=== PATIENT | female | born 1970 | race Caucasian/White ===

== ENCOUNTER 2018-03-30 16:15 | Inpatient (IN) | payer BC, OTHER ==
[~2018-03-30] VITALS: Ht 157.5 cm; Wt 58.1 kg
--- NOTE | ~2018-03-30 | HC ---
[facility] [place] [address] CONSULTATION Name: EILEEN GRAVES Room #: 361-P [facility] IN ..#: [id number] Admission: 03/30/18 Attend Phys: Justin Stanton MD Discharge: Date of : 70 Report #: [id number] THIS REPORT FOR: //name// CC: Aaron Stanton DATE OF SERVICE: 04/01/2018 REASON FOR CONSULTATION: Left-sided facial swelling. HISTORY OF PRESENT ILLNESS: The patient is a 47-year-old female, who has been admitted with facial cellulitis and severe thrombocytopenia. I have been asked to evaluate her left-sided facial cellulitis. She has had a CT scan, which demonstrates facial swelling, but no underlying significant sinus disease or dental disease. She is currently having withdrawal from alcohol. She is confused and does not really know exactly where she is at. She states that she was bitten by a brown recluse spider, although there is no evidence of skin necrosis or overlying skin ulceration. She is unclear about other history and states that the swelling happened after the speech pathologist stuck her finger in her mouth. PAST MEDICAL HISTORY: Significant for alcoholism, chronic thrombocytopenia. See the medical record for her other history. FAMILY HISTORY: Noncontributory. SOCIAL HISTORY: Noncontributory. REVIEW OF SYSTEMS: At this time is essentially negative. She does have some discomfort in the left side of her face, but she is not really complaining about it. PHYSICAL EXAMINATION: GENERAL: She is a well-developed female, who is clearly agitated and wants to get out of bed. She has been given Ativan, but this is still not keeping her lucid. HEENT: Her head is normocephalic, otherwise. She has facial swelling on the left side which is . There is no evidence of fluctuance. She does have vision in her left eye and it is no longer swollen or shut, which is an apparent improvement from yesterday. Nasal septal deviation to the left. Oral cavity, no granulation or ulceration seen. NECK: No palpable adenopathy. She does have ecchymosis on the left side and there is some swelling with some mild adenopathy, but no evidence of fluctuance. IMPRESSION: Left facial cellulitis in the face of thrombocytopenia; and [facility] [address] [place] [address] CONSULTATION Name: EILEEN GRAVES Room #: 361-P ADM IN M.R.#: [id number] Admission: 03/30/18 Attend Phys: Justin Stanton MD Discharge: Date of : 70 Report #: [id number] alcoholism, currently in withdrawal. PLAN: She will continue her IV antibiotics and has had IV Decadron. She should continue to improve. If she worsens or does not improve, she should have a repeat imaging study to make sure she has not subsequently developed an abscess, but at this time, there is no drainable abscess seen. By: [id number] Mario Rojas MD /dionisio
--- NOTE | ~2018-03-30 | HC ---
[facility] [place] [address] CONSULTATION Name: EILEEN GRAVES Room #: 361-P [facility] IN .R.#: [id number] Admission: 03/30/18 Attend Phys: Justin Stanton MD Discharge: Date of : 70 Report #: [id number] THIS REPORT FOR: //name// CC: Aaron Stanton DATE OF SERVICE: 03/31/2018 REASON FOR CONSULTATION: Evaluate left facial cellulitis. HISTORY OF PRESENT ILLNESS: The patient is a 47-year-old who presents with a 3-day history of left facial swelling and tenderness. She stated that she felt well the day prior to the onset. In the evening started noticing a little bit of tenderness to the right cheek. Awoke on Thursday morning with profound swelling. Presented to the outpatient clinic and was hospitalized from there. Blood cultures have been obtained and now showing 1 of 2 cultures, gram-positive cocci consistent with strep. She has had some sinus congestion, but no purulent drainage. No significant cough or sputum production. No specific trauma identified. No recent dental work or dental pain. No ear pain. No confusional state. No other skin lesions noted. Had been outside a fair amount in the days before, but no definite insect bite. The swelling encapsulated her left eye. Swelling has diminished some this morning and she can now see out of her eye. There have been no visual issues. No difficulty swallowing, although she has been anorexic. No nausea or vomiting. No diarrhea. No blood in her stool or urine. No travel. No prior history of MRSA. She does have a history of alcohol abuse. States that she has been drinking moderate amount in the last weeks. Has not noticed any nya-colored stools or jaundice discoloration until the last 24-48 hours. Now, is having tea-colored urine. When she presented to the Emergency Room, she had an alcohol level of 109. ALLERGIES: PENICILLIN, BUT DOES TOLERATE CEPHALOSPORINS. MEDICATIONS: As noted on her MAR, having been started on vancomycin and clindamycin in the Emergency Room. Her medications otherwise had included spironolactone. PAST MEDICAL HISTORY: Alcoholic hepatitis, fractured foot, GI bleed, peripheral edema. FAMILY HISTORY: Otherwise, noncontributory. SOCIAL HISTORY: Smoker of cigarettes. No HIV risk factors. [facility] [address] [place] [address] CONSULTATION Name: EILEEN GRAVES Room #: 361-P [facility] IN M.R.#: [id number] Admission: 03/30/18 Attend Phys: Justin Stanton MD Discharge: Date of : 70 Report #: [id number] REVIEW OF SYSTEMS: CONSTITUTIONAL: She has had associated chills, but no documented fever. No sweats. She has had no change in weight. EYES: Compromised on the left due to swelling. HENT: Otherwise noted above. RESPIRATORY: Negative. CARDIOVASCULAR: Negative. GASTROINTESTINAL: Mild nausea, anorexia. GENITOURINARY: Negative. MUSCULOSKELETAL: Negative. SKIN: As above. NEUROLOGIC: Negative. PSYCHIATRIC: Negative. ENDOCRINE: Negative. HEMATOLOGIC: Negative. ALLERGY AND IMMUNOLOGY: Noted an insect bite 2 weeks ago to the left foot. PHYSICAL EXAMINATION: VITAL SIGNS: Maximum temperature is 102 degrees earlier, now afebrile with temperature 99.4, blood pressure 94/53, pulse 109 on 1 liter of oxygen per nasal cannula. GENERAL: She was alert and conversant. SKIN: Icteric with left facial swelling 3+. I could see her iris. Sclerae were icteric. Visual waterman compromised from her swelling. Extraocular movements normal. Nose normal. Swelling and tenderness over the entire left lower face and periorbital region. Small amount of serous drainage identified. Intraoral examination was limited due to her trismus. Dentition unremarkable. Parotid could not elicit any drainage from the duct. NECK: Supple. She did have some anterior chain adenopathy, no thyromegaly. Cranial nerves were otherwise intact. No other lymphadenopathy. LUNGS: Clear. HEART: Regular with a 2/6 systolic murmur at left sternal border. ABDOMEN: Mildly protuberant with palpable liver and spleen. No other masses appreciated. EXTREMITIES: Trace peripheral edema. She did have telangiectasia to her chest. NEUROLOGIC: Nonfocal. Mood was normal. LABORATORY STUDIES: Sodium 132, potassium 3.6, bicarbonate 21, creatinine 0.9. Sedimentation rate 90. Protime 25. INR 2.7, bilirubin total was 7.9, direct 4.7, albumin 1.5, ammonia 4. AST 70, ALT 23, alkaline phosphatase 43. Hemoglobin 6.5, white count 7, platelet count 11. Blood cultures 1 of [address] scan of the facial bones showed preseptal cellulitis and facial cellulitis without abscess. Sinuses were unremarkable. No dental issues. IMPRESSION: [facility] [address] [place] [address] CONSULTATION Name: ELYEILEEN Room #: 361-P [facility] IN M.R.#: [id number] Admission: 03/30/18 Attend Phys: Justin Stanton MD Discharge: Date of : 70 Report #: [id number] 1. Left facial and preseptal cellulitis, suspect streptococcal infection. 2. Alcoholic liver disease with cirrhosis associated with anemia and thrombocytopenia. I am concerned she may have esophageal varices. Likely has enough portal hypertension to impact her spleen. 3. Streptococcal bacteremia, I am suspecting related to her facial infection. No evidence of dental abscess or parotitis. RECOMMENDATION: We will continue with ceftriaxone, clindamycin, and vancomycin. Adjust her antibiotics once inflammation improves and identification of the blood cultures. Elevate her head and try to control her edema. Further workup of her liver disease. She has been seen by Gastroenterology service. Agree with ultrasound of the abdomen. <ELECTRONICALLY SIGNED> By: Aaron Carney MD 04/01/18 1003 2130 0315 Aaron Carney MD /nt
--- NOTE | ~2018-03-30 | EKG ---
[address] [address] ELECTROCARDIOGRAM REPORT Name: EILEEN GRAVES Room #: 361- ADM IN M.R.#: [id number] Admission: 03/30/18 Attend Phys: Justin Stanton MD Discharge: Date of : 70 Report #: [id number] THIS REPORT FOR: //name// [facility] Test Date: 2018-04-08 Test Time: 08:19:04 Pat Name: EILEEN GRAVES Department: Room: 361 Gender: F Mail Inserter: EDITA : 1970 Requested By: Alice Macias Order Number: [id number] MD: Neymar Shultz Measurements Intervals [place] Rate: 94 P: 64 IA: 128 QRS: 56 QRSD: 93 T: 43 QT: 378 QTc: 473 Interpretive Statements Sinus rhythm Nonspecific ST segment abnormality Compared to ECG 02/01/2015 20:13:03 Nonspecific change in the ST segments Electronically Signed On 04-08-2018 8:25:26 CDT by Neymra Shultz [email or web address] <ELECTRONICALLY SIGNED> By: Neymar Shultz MD, [facility] 04/08/18824 8 8 Neymar Shultz MD, [facility] /EPI
--- NOTE | ~2018-03-30 | HC ---
[facility] [place] [address] CONSULTATION Name: EILEEN GRAVES Room #: 361-P ADM IN M.R.#: [id number] Admission: 03/30/18 Attend Phys: Justin Stanton MD Discharge: Date of : 70 Report #: [id number] THIS REPORT FOR: //name// CC: Aaron Proctor DO Justin Stanton HISTORY OF PRESENT ILLNESS: This patient is seen in consultation in regards to marked thrombocytopenia. She was admitted emergently with evidence of left facial cellulitis and initial platelet count of 31,000. On repeat, this has dropped to 11,000 today. Followup testing shows it is 14,000. With this, her hemoglobin and hematocrit has also dropped profoundly. She is a known alcoholic with liver disease and chronic enzymopathy along with elevated bilirubin. She is still actively drinking and smoking. On Thursday, she states she became acutely ill with chills and fever and noted the facial swelling. She is unaware of underlying chronic sinusitis issues. She has had no recent travel history. She denies any blood loss. PAST MEDICAL HISTORY: Significant for chronic lower extremity edema along with previous broken metatarsals. MEDICATIONS: As listed on the MFR. ALLERGIES: To PENICILLINS. SOCIAL HISTORY: Positive for 1-2 packs of cigarettes per day. She denies illicit drug use. She has ongoing heavy alcohol consumption with an elevated level on admission. REVIEW OF SYSTEMS: In the history of present illness and negative for any recent suspicious adenopathy. PHYSICAL EXAMINATION: HEENT: Shows a marked left facial swelling. Her left eye and lid are closed due to this. Her mouth is clear. NECK: Supple. CHEST: Clear. ABDOMEN: Soft/obese. Question ascites. No palpable spleen. NEUROLOGICAL: No focal localizing signs. PSYCHIATRIC: Not agitated or confused. LYMPHATICS: No suspicious adenopathy. SKIN: Normal turgor. EXTREMITIES: Show ankle edema. [facility] [address] [place] [place] [address] CONSULTATION Name: EILEEN GRAVES Room #: 361-[facility] IN [facility]#: [id number] Admission: 03/30/18 Attend Phys: Justin Stanton MD Discharge: Date of : 70 Report #: [id number] LABORATORY DATA: As discussed. ASSESSMENT: Marked anemia/thrombocytopenia. PLAN: This appeared to be [id number] thrombocytopenia with a previous platelet counts in the 100,000 range. While undoubtedly this is in part due to her cellulitis/sepsis and acidosis. Labs will be obtained to rule out DIC. With her jaundice, it is possible also that she is experiencing hemolysis. Appropriate laboratory studies have been ordered and I will follow along with you. It is possible she also has cryoglobulinemia with her known prior liver disease/hepatitis. Thanks for allowing me to participate in her care. <ELECTRONICALLY SIGNED> By: Debra Win MD 04/01/18 1528 1418 1835 MD nilesh Rader
[~2018-03-30 16:15] MED LIST: BACTRIM DS TAB1 EACH PO; CLEOCIN HCL300 MG PO; IBUPROFEN 200200 M1 PO; PHENERGAN 25 MG25 M1 PO; PREDNISONE 10 M10 MG PO
[2018-03-30 16:24] VITALS: BP 101/58
[2018-03-30] MEDS ORDERED: ALDACTONE50 MG PO (16:26)
[2018-03-30 16:45] LABS: WBC 12.5 thou/uL (4.0-11.0)
[2018-03-30 16:46] LABS: HEMATOCRIT 25.3 % (37.0-47.0); HEMOGLOBIN 8.8 gm/dL (12.0-15.0); MCH 38.2 pg (26.0-34.0); MCHC 34.8 g/dL (28.0-37.0); MCV 109.8 fL (80.0-100.0); RBC 2.31 mil/uL (4.20-5.00); RDW 18.3 % (10.5-14.5)
[2018-03-30 16:52] LABS: CALCIUM 7.8 mg/dL (8.5-10.1); CREATININE 1.6 mg/dL (0.6-1.0); POTASSIUM 3.5 mmol/L (3.5-5.1)
[2018-03-30 17:20] LABS: DIRECT BILIRUBIN 5.9 mg/dL (<0.1-0.3); TOTAL BILIRUBIN 10.5 mg/dL (<0.1-1.0)
[2018-03-30 17:28] LABS: ABSOLUTE NEUTROPHILS 11.6 thou/uL (1.4-8.2)
[2018-03-30 17:30] LABS: ANISOCYTOSIS 2+; BURR CELLS 1+; LARGE PLATELETS OCCASIONAL; MACROCYTES 1+; PLATELET COUNT 31 thou/uL (150-400)
[2018-03-30 17:44] VITALS: BP 101/58
[2018-03-30 19:30] VITALS: BP 94/61
[2018-03-30 20:15] VITALS: BP 101/67
[2018-03-30 22:52] VITALS: BP 118/75
[2018-03-31 00:03] VITALS: BP 113/63
[2018-03-31 04:05] VITALS: BP 101/61
[2018-03-31 07:52] VITALS: BP 102/59
[2018-03-31 08:32] LABS: RBC 1.67 mil/uL (4.20-5.00)
[2018-03-31 08:34] LABS: MCH 39.2 pg (26.0-34.0); MCHC 35.8 g/dL (28.0-37.0); MCV 109.3 fL (80.0-100.0); RDW 18.2 % (10.5-14.5)
[2018-03-31 08:40] LABS: ALBUMIN 1.5 g/dL (3.4-5.0); CALCIUM 6.5 mg/dL (8.5-10.1); CREATININE 0.9 mg/dL (0.6-1.0); POTASSIUM 3.6 mmol/L (3.5-5.1); TOTAL PROTEIN 5.3 g/dL (6.4-8.2)
[2018-03-31 08:42] LABS: HEMATOCRIT 18.2 % (37.0-47.0)
[2018-03-31 08:43] LABS: HEMOGLOBIN 6.5 gm/dL (12.0-15.0); PLATELET COUNT 11 thou/uL (150-400)
[2018-03-31 09:44] LABS: HEMATOCRIT 19.9 % (37.0-47.0); HEMOGLOBIN 6.9 gm/dL (12.0-15.0)
[2018-03-31 10:50] LABS: ABSOLUTE NEUTROPHILS 5.8 thou/uL (1.4-8.2); METAMYELOCYTES 1 %; NUCLEATED RBCS 1 /100WBC
[2018-03-31 10:51] LABS: ANISOCYTOSIS 1+; MACROCYTES 1+; PLATELET ESTIMATE MARKEDLY DECREASED
[2018-03-31 11:06] LABS: ABSOLUTE RETIC COUNT 0.0796 10^6/uL; OBSERVED RETIC COUNT 4.36 % (0.6-2.6)
[2018-03-31 11:08] LABS: DIRECT BILIRUBIN 4.7 mg/dL (<0.1-0.3); TOTAL BILIRUBIN 7.9 mg/dL (<0.1-1.0)
[2018-03-31 11:08] LABS: APTT 55.1 Seconds (24.5-32.8); FIBRINOGEN 126.4 mg/dL (210-360); INR 2.7; PROTIME 27.2 Seconds (9.3-11.4)
[2018-03-31 11:29] VITALS: BP 94/53
[2018-03-31 14:46] LABS: % SATURATION 30 % (20-39); IRON 47 ug/dL (50-170); TIBC 155 ug/dL (250-450)
[2018-03-31 15:14] LABS: PROTIME 25.3 Seconds (9.3-11.4)
[2018-03-31 16:15] VITALS: BP 103/61
[2018-03-31 19:37] VITALS: BP 106/58
[2018-04-01] VITALS (7 sets, daily range): BP systolic 96–120; BP diastolic 59–80
[2018-04-01 04:09] LABS: HAV IgM AB (ANTI-HAV IgM) Negative (Negative); HEPATITIS B SURFACE AG Negative (Negative); HEPATITIS C VIRUS AB 0.2 (0.0-0.9); IgG 1812 mg/dL (700-1600)
[2018-04-01 06:24] LABS: BASOPHILS 0.1 % (0.0-2.0); HEMOGLOBIN 7.3 gm/dL (12.0-15.0); MCH 38.6 pg (26.0-34.0); MCHC 34.7 g/dL (28.0-37.0); MCV 111.3 fL (80.0-100.0); MONOCYTES 5.7 % (1.0-8.0); PLATELET COUNT 30 thou/uL (150-400); POLYS 89.2 % (36.0-66.0); RBC 1.89 mil/uL (4.20-5.00); RDW 19.1 % (10.5-14.5); WBC 12.3 thou/uL (4.0-11.0)
[2018-04-01 06:41] LABS: CALCIUM 6.6 mg/dL (8.5-10.1); CREATININE 0.9 mg/dL (0.6-1.0); MAGNESIUM 1.1 mg/dL (1.8-2.4); POTASSIUM 3.4 mmol/L (3.5-5.1)
[2018-04-01 06:50] LABS: FIBRINOGEN 139.1 mg/dL (210-360); PROTIME 23.1 Seconds (9.3-11.4)
[2018-04-01 06:52] LABS: INR 2.3
[2018-04-01 15:11] LABS: CERULOPLASMIN 9.6 mg/dL (19.0-39.0)
[2018-04-02 03:11] VITALS: BP 122/73
[2018-04-02 07:25] VITALS: BP 116/73
[2018-04-02 07:55] LABS: HEMATOCRIT 23.9 % (37.0-47.0); HEMOGLOBIN 8.6 gm/dL (12.0-15.0); MCH 38.3 pg (26.0-34.0); MCV 106.5 fL (80.0-100.0); RBC 2.25 mil/uL (4.20-5.00); WBC 8.1 thou/uL (4.0-11.0)
[2018-04-02 08:09] LABS: CALCIUM 6.8 mg/dL (8.5-10.1); CREATININE 0.7 mg/dL (0.6-1.0); POTASSIUM 3.3 mmol/L (3.5-5.1)
[2018-04-02 08:29] LABS: INR 2.1; PROTIME 20.3 Seconds (9.3-11.4)
[2018-04-02 08:38] LABS: ALBUMIN 1.6 g/dL (3.4-5.0); DIRECT BILIRUBIN 5.2 mg/dL (<0.1-0.3); TOTAL BILIRUBIN 9.2 mg/dL (<0.1-1.0)
[2018-04-02 10:06] LABS: TOTAL PROTEIN 6.2 g/dL (6.4-8.2)
[2018-04-02 11:32] VITALS: BP 128/74
[2018-04-02 14:09] LABS: ANA INTERPRETATION Positive (Negative)
[2018-04-02 15:32] VITALS: BP 125/85
[2018-04-02 20:14] VITALS: BP 132/71
[2018-04-02 23:54] VITALS: BP 128/62
[2018-04-03 04:30] VITALS: BP 122/76
[2018-04-03 08:16] VITALS: BP 122/66
[2018-04-03 11:04] VITALS: BP 120/75
[2018-04-03 11:46] LABS: HEMOGLOBIN 8.9 gm/dL (12.0-15.0); RBC 2.32 mil/uL (4.20-5.00); RDW 21.5 % (10.5-14.5)
[2018-04-03 11:48] LABS: HEMATOCRIT 24.7 % (37.0-47.0); MCH 38.5 pg (26.0-34.0); MCHC 36.1 g/dL (28.0-37.0); MCV 106.6 fL (80.0-100.0); PLATELET COUNT 35 thou/uL (150-400); WBC 7.9 thou/uL (4.0-11.0)
[2018-04-03 12:00] LABS: ALBUMIN 1.6 g/dL (3.4-5.0); CALCIUM 6.9 mg/dL (8.5-10.1); CREATININE 0.7 mg/dL (0.6-1.0); POTASSIUM 3.2 mmol/L (3.5-5.1); TOTAL BILIRUBIN 9.8 mg/dL (<0.1-1.0); TOTAL PROTEIN 6.2 g/dL (6.4-8.2)
[2018-04-03 13:33] LABS: ABSOLUTE NEUTROPHILS 5.4 thou/uL (1.4-8.2); ANISOCYTOSIS 1+; MACROCYTES 1+; METAMYELOCYTES 1 %; NUCLEATED RBCS 1 /100WBC
[2018-04-03 15:31] VITALS: BP 127/77
[2018-04-03 21:00] VITALS: BP 120/62
[2018-04-04 05:30] VITALS: BP 129/75
[2018-04-04 05:50] LABS: HEMOGLOBIN 9.1 gm/dL (12.0-15.0); MCH 38.5 pg (26.0-34.0)
[2018-04-04 05:54] LABS: HEMATOCRIT 25.4 % (37.0-47.0); MCHC 35.7 g/dL (28.0-37.0); MCV 107.8 fL (80.0-100.0); RBC 2.36 mil/uL (4.20-5.00); WBC 8.1 thou/uL (4.0-11.0)
[2018-04-04 05:59] LABS: CALCIUM 7.1 mg/dL (8.5-10.1); CREATININE 0.7 mg/dL (0.6-1.0); POTASSIUM 3.2 mmol/L (3.5-5.1)
[2018-04-04 07:25] VITALS: BP 143/89
[2018-04-04 19:55] VITALS: BP 126/73
[2018-04-05 04:20] VITALS: BP 113/70
[2018-04-05 04:41] LABS: HEMATOCRIT 25.4 % (37.0-47.0); HEMOGLOBIN 8.9 gm/dL (12.0-15.0); RBC 2.31 mil/uL (4.20-5.00)
[2018-04-05 04:43] LABS: MCH 38.5 pg (26.0-34.0); MCV 109.8 fL (80.0-100.0); RDW 21.9 % (10.5-14.5)
[2018-04-05 07:48] VITALS: BP 125/77
[2018-04-05 08:27] LABS: ABSOLUTE NEUTROPHILS 5.1 thou/uL (1.4-8.2); ANISOCYTOSIS 2+; LARGE PLATELETS FEW; MACROCYTES 2+; METAMYELOCYTES 5 %; MYELOCYTES 1 %; PLATELET COUNT 35 thou/uL (150-400); PLATELET ESTIMATE DECREASED; POLYCHROMASIA 3+
[2018-04-05 11:41] VITALS: BP 114/59
[2018-04-05 13:28] LABS: APTT 36.3 Seconds (24.5-32.8); INR 2.2
[2018-04-05 17:08] LABS: GLOBULIN TOTAL 3.3 g/dL (2.2-3.9); M-SPIKE Not Observed g/dL (Not Observed)
[2018-04-05 17:36] VITALS: BP 120/62
[2018-04-05 19:50] VITALS: BP 105/58
[2018-04-05 23:55] VITALS: BP 118/74
[2018-04-06 03:15] VITALS: BP 123/67
[2018-04-06 07:58] VITALS: BP 122/74
[2018-04-06 10:05] LABS: CALCIUM 7.2 mg/dL (8.5-10.1); CREATININE 0.6 mg/dL (0.6-1.0); MAGNESIUM 1.5 mg/dL (1.8-2.4); POTASSIUM 3.2 mmol/L (3.5-5.1)
[2018-04-06 11:21] VITALS: BP 110/62
[2018-04-06 15:22] VITALS: BP 104/56
[2018-04-06 19:50] VITALS: BP 111/60
[2018-04-06 21:21] LABS: MAGNESIUM 1.5 mg/dL (1.8-2.4); POTASSIUM 3.3 mmol/L (3.5-5.1)
[2018-04-07 04:00] VITALS: BP 114/67
[2018-04-07 06:07] LABS: MAGNESIUM 1.5 mg/dL (1.8-2.4); POTASSIUM 3.4 mmol/L (3.5-5.1)
[2018-04-07 07:48] VITALS: BP 124/71
[2018-04-07 09:12] LABS: HEMOGLOBIN 7.8 gm/dL (12.0-15.0); MCH 38.5 pg (26.0-34.0); RBC 2.03 mil/uL (4.20-5.00)
[2018-04-07 09:13] LABS: HEMATOCRIT 22.3 % (37.0-47.0); MCV 110.1 fL (80.0-100.0); WBC 9.6 thou/uL (4.0-11.0)
[2018-04-07 10:55] LABS: APTT 41.2 Seconds (24.5-32.8); PROTIME 20.2 Seconds (9.3-11.4)
[2018-04-07 11:08] LABS: FIBRINOGEN 95.8 mg/dL (210-360)
[2018-04-07 11:23] LABS: ALBUMIN 1.4 g/dL (3.4-5.0); DIRECT BILIRUBIN 4.5 mg/dL (<0.1-0.3)
[2018-04-07 11:44] LABS: TOTAL PROTEIN 5.3 g/dL (6.4-8.2)
[2018-04-07 12:42] VITALS: BP 127/68
[2018-04-07 16:16] VITALS: BP 144/77
[2018-04-07 16:59] LABS: MAGNESIUM 1.6 mg/dL (1.8-2.4); POTASSIUM 3.6 mmol/L (3.5-5.1)
[2018-04-07 19:15] VITALS: BP 140/77
[2018-04-08 03:54] VITALS: BP 120/71
[2018-04-08 06:31] LABS: HEMATOCRIT 24.3 % (37.0-47.0); HEMOGLOBIN 8.5 gm/dL (12.0-15.0); MCH 39.5 pg (26.0-34.0); MCHC 35.2 g/dL (28.0-37.0); MCV 112.2 fL (80.0-100.0); RBC 2.16 mil/uL (4.20-5.00); RDW 24.3 % (10.5-14.5); WBC 10.4 thou/uL (4.0-11.0)
[2018-04-08 06:50] LABS: ALBUMIN 1.4 g/dL (3.4-5.0); DIRECT BILIRUBIN 4.7 mg/dL (<0.1-0.3); PROTIME 20.4 Seconds (9.3-11.4); TOTAL PROTEIN 5.8 g/dL (6.4-8.2)
[2018-04-08 06:51] LABS: TOTAL BILIRUBIN 9.8 mg/dL (<0.1-1.0)
[2018-04-08 07:50] VITALS: BP 112/54
[2018-04-08 11:36] VITALS: BP 134/74
[2018-04-08 15:48] VITALS: BP 138/77
[2018-04-08 20:00] VITALS: BP 136/73
[2018-04-09 04:00] VITALS: BP 128/69
[2018-04-09 06:35] LABS: ALBUMIN 1.5 g/dL (3.4-5.0); DIRECT BILIRUBIN 5.4 mg/dL (<0.1-0.3); TOTAL BILIRUBIN 9.8 mg/dL (<0.1-1.0)
[2018-04-09 08:15] VITALS: BP 142/89
[2018-04-09 12:55] LABS: INR 1.8; PROTIME 18.5 Seconds (9.3-11.4)
[2018-04-09 14:03] VITALS: BP 140/82
[2018-04-09 16:11] VITALS: BP 130/73
[2018-04-09 19:50] VITALS: BP 142/76
[2018-04-10 04:50] VITALS: BP 136/78
[2018-04-10 06:14] LABS: RDW 24.7 % (10.5-14.5)
[2018-04-10 06:16] LABS: HEMATOCRIT 25.6 % (37.0-47.0); HEMOGLOBIN 8.8 gm/dL (12.0-15.0); MCH 38.5 pg (26.0-34.0); MCHC 34.3 g/dL (28.0-37.0); MCV 112.4 fL (80.0-100.0); RBC 2.28 mil/uL (4.20-5.00); WBC 18.1 thou/uL (4.0-11.0)
[2018-04-10 06:30] LABS: ALBUMIN 1.6 g/dL (3.4-5.0); CALCIUM 7.9 mg/dL (8.5-10.1); CREATININE 0.6 mg/dL (0.6-1.0); DIRECT BILIRUBIN 5.7 mg/dL (<0.1-0.3); POTASSIUM 3.4 mmol/L (3.5-5.1); TOTAL BILIRUBIN 10.9 mg/dL (<0.1-1.0); TOTAL PROTEIN 6.7 g/dL (6.4-8.2)
[2018-04-10 07:38] VITALS: BP 134/74
[2018-04-10 08:30] LABS: ABSOLUTE NEUTROPHILS 16.3 thou/uL (1.4-8.2); NUCLEATED RBCS 1 /100WBC
[2018-04-10 08:32] LABS: ANISOCYTOSIS 2+; BURR CELLS OCCASIONAL; MACROCYTES 2+; POLYCHROMASIA 2+
[2018-04-10 08:33] LABS: PLATELET COUNT 46 thou/uL (150-400)
[2018-04-10 10:59] VITALS: BP 145/76
[2018-04-10 15:32] VITALS: BP 143/74
[2018-04-10] MEDS ORDERED: VITAMIN K PO (16:07)
[2018-04-10] MEDS ORDERED: SOLU-MEDRO40 MG/1 M1 IV PUSH (16:07)
[2018-04-10] MEDS ORDERED: CEFTRIAXON1 GM/50 M1 IVPB (16:07)
[2018-04-10] MEDS ORDERED: VITAMIN B-1100 M2 PO (16:07)
[2018-04-10] MEDS ORDERED: PROTONIX40 M1 PO (16:07)
[2018-04-10] MEDS ORDERED: PRENATAL PO (16:07)
[2018-04-10] MEDS ORDERED: KEFLEX500 M1 PO (16:11)
== END 2018-04-10 17:12 | DRG 871 ==
LOC: ER 16:15 → EROBS 18:44 → 3W 18:44
PROVIDERS: Emergency Medicine; Hospitalist; Internal Medicine Gastroenterology; Internal Medicine Hematology & Oncology; Nurse Practitioner
PROC: 30233N1 Transfusion of Nonautologous Red Blood Cells into Peripheral Vein, Percutaneous Approach (ICD-10-PCS; principal; 2018-04-01)
DX: A41.9 Sepsis, unspecified organism (principal); D65 Disseminated intravascular coagulation [defibrination syndrome]; L03.213 Periorbital cellulitis; N17.9 Acute kidney failure, unspecified; E44.0 Moderate protein-calorie malnutrition; E87.2 Acidosis; D68.9 Coagulation defect, unspecified; B95.0 Streptococcus, group A, as the cause of diseases classified elsewhere; E87.6 Hypokalemia; E83.42 Hypomagnesemia; F41.9 Anxiety disorder, unspecified; K72.90 Hepatic failure, unspecified without coma; E80.6 Other disorders of bilirubin metabolism; K70.30 Alcoholic cirrhosis of liver without ascites; F17.210 Nicotine dependence, cigarettes, uncomplicated; D64.9 Anemia, unspecified; K70.10 Alcoholic hepatitis without ascites; F10.10 Alcohol abuse, uncomplicated; Z68.23 Body mass index [BMI] 23.0-23.9, adult; Z87.81 Personal history of (healed) traumatic fracture; Z88.0 Allergy status to penicillin
CPT/HCPCS: 10879

== ENCOUNTER 2019-11-29 11:12 | Inpatient (IN) | payer OTHER ==
[2019-11-29] VITALS (26 sets, daily range): BP systolic 95–150; BP diastolic 47–66
[~2019-11-29] VITALS: Ht 154.9 cm; Wt 63.5 kg
[~2019-11-29 11:12] MED LIST changes: +ALDACTONE50 MG PO; +CALCIUM 600 +1 EAC1 PO; +CEFTRIAXON1 GM/50 M1 IVPB; +CHILDREN'S ASPI81 M1 PO; +COLACE100 MG PO; +GLIPIZIDE5 MG PO; +IRON325 PO; +KEFLEX500 M1 PO; +KEPPRA 500 MG500 M1 PO; +LASIX 40 MG TAB40 M2 PO; +LIPITOR 20 MG T20 M1 PO; +NORCO 5-325 TA1 EACH PO; +PACERONE 200 M200 M1 PO; +PRENATAL PO; +PROTONIX40 M1 PO; +SOLU-MEDRO40 MG/1 M1 IV PUSH; +SYNTHROID100 MC1 PO; +TOPROL XL25 MG PO; +TYLENOL325 MG PO; +VITAMIN B-1100 M2 PO; +VITAMIN K PO; +ZOLOFT50 MG PO
[2019-11-29 12:07] LABS: URINE BILIRUBIN NEGATIVE (Negative); URINE BLOOD NEGATIVE (Negative); URINE CLARITY CLEAR; URINE COLOR YELLOW; URINE GLUCOSE-RANDOM* NEGATIVE (Negative); URINE KETONES NEGATIVE (Negative); URINE LEUKOCYTES-REFLEX NEGATIVE (Negative); URINE NITRITE-REFLEX NEGATIVE (Negative); URINE PROTEIN (DIPSTICK) NEGATIVE (Negative); URINE UROBILINOGEN 0.2 E.U./dl (0.2-1.0)
[2019-11-29 12:09] LABS: EOSINOPHILS 1.8 % (0.0-3.0); HEMATOCRIT 37.7 % (37.0-47.0); HEMOGLOBIN 12.9 gm/dL (12.0-15.0); LYMPHOCYTES 31.6 % (24.0-44.0); MCH 34.3 pg (26.0-34.0); MCHC 34.3 g/dL (28.0-37.0); MONOCYTES 9.8 % (1.0-8.0); POLYS 55.8 % (36.0-66.0); RBC 3.77 mil/uL (4.20-5.00); WBC 5.4 thou/uL (4.0-11.0)
[2019-11-29 12:13] LABS: ANION GAP 10 mmol/L (7-16); BUN 6 mg/dL (7-18); CALCIUM 8.6 mg/dL (8.5-10.1); CHLORIDE 101 mmol/L (98-107); CO2 25 mmol/L (21-32); CREATININE 0.8 mg/dL (0.6-1.0); GLUCOSE 133 mg/dL (74-106); POTASSIUM 3.2 mmol/L (3.5-5.1); SODIUM 136 mmol/L (136-145)
[2019-11-29 12:23] LABS: ALBUMIN 2.9 g/dL (3.4-5.0); MAGNESIUM 1.5 mg/dL (1.8-2.4); SGOT 59 U/L (15-37); SGPT 30 U/L (30-65); TOTAL BILIRUBIN 3.6 mg/dL (<0.1-1.0); TOTAL PROTEIN 6.1 g/dL (6.4-8.2); TROPONIN-I <0.06 ng/mL (<0.06)
[2019-11-29 12:42] LABS: PLATELET COUNT 71 thou/uL (150-400)
[2019-11-29 13:01] LABS: INR 1.5
--- NOTE | 2019-11-29 13:22 | EKG ---
[facility] [place] [address] ELECTROCARDIOGRAM REPORT Name: EILEEN GRAVES Room #: [facility]#: [id number] Admission: 11/29/19 Attend Phys: Discharge: Date of : 70 Report #: [id number] THIS REPORT FOR: cc: Merritt Proctor James A. DO Couchonnal, Luis F. 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[facility] : 1970 Requested By: Chino Simmons Order Number: [id number] MD: Dakota Velasco Measurements Intervals [place] Rate: 88 P: 54 IN: 147 QRS: 50 QRSD: 100 T: 2 QT: 399 QTc: 483 Interpretive Statements Sinus rhythm Probable left ventricular hypertrophy Nonspecific T abnormalities, inferior leads Compared to ECG 04/08/2018 08:19:04 T-wave abnormality now present ST (T wave) deviation no longer present Electronically Signed On 11-29-2019 13:21:11 CDT by Dakota Velasco [email or web address] <ELECTRONICALLY SIGNED> By: Dakota Velasco MD 11/29/19 1321 1220 1220 Dakota Velasco MD /EPI
--- NOTE | 2019-11-29 17:06 | NUR ---
PT ADMITTED TO ICU AT 1425. AMBULATES WITH STANDBY ASSIST. VOIDS, REGULAR DIET WITH APPETITE. K REPLACED.
[2019-11-30] VITALS (25 sets, daily range): BP systolic 90–159; BP diastolic 44–133
[2019-11-30 05:31] LABS: ABSOLUTE NEUTROPHILS 2.2 thou/uL (1.4-8.2); EOSINOPHILS 3.3 % (0.0-3.0); HEMATOCRIT 32.7 % (37.0-47.0); HEMOGLOBIN 11.3 gm/dL (12.0-15.0); LYMPHOCYTES 40.1 % (24.0-44.0); MCH 34.7 pg (26.0-34.0); MCHC 34.5 g/dL (28.0-37.0); MCV 100.5 fL (80.0-100.0); POLYS 45.6 % (36.0-66.0); RBC 3.25 mil/uL (4.20-5.00); RDW 15.3 % (10.5-14.5); WBC 4.8 thou/uL (4.0-11.0)
[2019-11-30 05:35] LABS: PLATELET COUNT 57 thou/uL (150-400)
[2019-11-30 05:36] LABS: CALCIUM 7.8 mg/dL (8.5-10.1); CREATININE 0.8 mg/dL (0.6-1.0); MAGNESIUM 1.9 mg/dL (1.8-2.4); POTASSIUM 3.7 mmol/L (3.5-5.1)
--- NOTE | 2019-11-30 06:19 | NUR ---
Shift summary: Neuro intact. Denies pain. Gait unsteady. CT angio last noc; bleed stable. VSS. Abfebrile. SR. Room air. Lungs clear. BS active. Voiding qs. Electrolytes corrected. Plan of care reviewed and updated as able. Pt progressing towards discharge goals.
--- NOTE | 2019-11-30 08:40 | NUR ---
per bedside nurse, pt going for mri. will cont following as needed for dc needs.
--- NOTE | 2019-11-30 11:19 | NUR ---
RD consult received. Admit with ICH, falls. Hx past etoh use, hepatitis. Visit with pt, reportes excellent appetite, "loves to eat", wts stable around usual of 130-135 lb. Drinks protein shakes at home and would like to have ensure while here, order 1x per day. Low nutrition risk, no malnutrition identified.
--- NOTE | 2019-11-30 18:07 | NUR ---
MRI OF BRAIN TODAY SHOWS STABLE R FRONTAL LOBE BLEED. UNREMARKABLE NEURO ASSESSMENT. DOES TEND TO LEAN WHEN SITTING OR STANDING MOSTLY TO THE LEFT. UNSTEADY GAIT. CONSULT FOR REHAB DOCTOR TODAY
[2019-12-01] VITALS (20 sets, daily range): BP systolic 90–132; BP diastolic 44–70
--- NOTE | 2019-12-01 04:09 | NUR ---
ASSUMED PT CARE AROUND 1900. A&OX4. C/O MILD HEADACHE; RESOLVED WITH TYLENOL. ALSO C/O NAUSEA AT BEGINNING OF SHIFT. PT STATED NAUSEA RESOLVED WITH ZOFRAN AND A COOL COTH ON HER HEAD. PT SLEPT MOST OF THE NIGHT. RESP EVEN AND UNLABORED. VSS. AFEBRILE. CALLS OUT APPROPRIATELY FOR HELP TO THE BSC. UP W/ 1 ASSIST AND WALKER TO BSC. TOLERATES WALKING WELL, BUT HAS SOME DIFFICULTY WITH BALANCE. PROGRESSING SLOWLY TOWARD POC GOALS. WILL CONTINUE TO MONITOR FURTHER.
[2019-12-01 05:08] LABS: HEMATOCRIT 34.3 % (37.0-47.0); HEMOGLOBIN 11.8 gm/dL (12.0-15.0); MCH 34.5 pg (26.0-34.0); MCHC 34.4 g/dL (28.0-37.0); MCV 100.1 fL (80.0-100.0); RBC 3.43 mil/uL (4.20-5.00); WBC 7.2 thou/uL (4.0-11.0)
[2019-12-01 05:40] LABS: CALCIUM 8.4 mg/dL (8.5-10.1); CREATININE 0.7 mg/dL (0.6-1.0); POTASSIUM 4.3 mmol/L (3.5-5.1)
--- NOTE | 2019-12-01 14:13 | NUR ---
discussed during los, 5n consulted for dcp. will cont following as needed for dc needs.
--- NOTE | 2019-12-01 17:57 | NUR ---
PT ASSESSMENTS AND VS DOCUMENTED. PT WALKED WITH PHYSICAL THERAPY TWICE TODAY. PT CONTINUES TO HAVE LEFT SIDED WEAKNESS. NO OTHER DEFICITS NOTED. PROVIDER ORDERED MED/SURG TRANSFER. PT CONTINUES TO HAVE ADEQUATE DIET AND URINE OUTPUT; NO BOWEL MOVEMENT TODAY. PROGRESSING TOWARDS PLAN OF CARE EVIDENCE BY MOVING TO LOWER ACTUITY OF CARE. WILL CONTINUE TO MONITOR.
--- NOTE | 2019-12-01 23:42 | NUR ---
ASSUMED PT CARE AROUND 1900. A&OX4. PERRLA. C/O MILD HEADACHE, IMPROVED WITH TYLENOL. PT IS ABLE TO FOLLOW COMMANDS AND MARTINEZ. LEFT SIDE WEAKER THAN RIGHT. PT LEANS TO THE LEFT WHEN AMBULATING AND HAS SOME IMBALANCE WITH WALKING AND SITTING UP ON SIDE OF THE BED. VSS. AFEBRILE. FALL PRECAUTIONS IN PLACE. PT HAS ORDER TO TRANSFER TO MED/SURG UNIT. REPORT CALLED TO FLOOR RN. PT TRANSFERED FROM ICU TO MED/SURG UNIT AROUND 0, WITH ALL HER BELONGINGS. PROGRESSING TOWARD POC GOALS.
[2019-12-02 00:03] VITALS: BP 115/55
[2019-12-02 03:45] VITALS: BP 118/68
--- NOTE | 2019-12-02 04:00 | NUR ---
PT TRANSFERRED FROM ICU AT AROUND MIDNIGHT. PT WITH WEAKNESS MOSTLY TO THE LEFT HAND AND LEFT LEG. PT REQUIRES MAX ASSIST TO THE BSC. AFEBRILE.SWALLOWING OK. NEUROCHECKS COMPLETED.CONT OF BLADDER. DENIES NAY HEADACHE THRO NIGHT, FALL PREC IN PLACE.
[2019-12-02 09:11] VITALS: BP 125/64
[2019-12-02] MEDS ORDERED: KEPPRA 500 MG500 MG PO (12:06)
[2019-12-02] MEDS ORDERED: DECADRON4 MG PO (12:08)
--- NOTE | 2019-12-02 14:11 | NUR ---
5N RECEIVED AUTH FOR PT TO DISCHARGE TO THEM THIS DAY. CARE TEAM INDICATED THAT PT IS MEDICALLY STABLE TO DC THIS DAY. CM CALLED AND NOTIFIED PT AND SPOUSE THEY ARE AWARE AND AGREEABLE. AWAITING ROOM ASSIGNMENT. NO OTHER CM INTERVENTION INDICATED. CASE CLOSED.
--- NOTE | 2019-12-02 14:22 | NUR ---
Assumed pt care at 7am.Pt in bed alert and awake.Assessment completed.vss. Pt has little movement to left arm earlier this shift but better with therapy after breakfast.Dr Stanton and Jem here,order noted.Received call from rehab liason about pt dc to inpt rehab unit today.Report off to Mica ramos. Pt informed about dc and she inotified her family. AT 1435,pt left per bed to inpt rehab accompanied by 2 [facility] staff.Will continue to monitor.
== END 2019-12-02 14:44 | DRG 85 ==
LOC: ER 11:12 → ICU 15:31 → 4S 15:31 → ICU 15:32 → 4S 12-01 23:56
PROVIDERS: Emergency Medicine; Nurse Practitioner; ADMIT Hospitalist
DX: S06.300A Unspecified focal traumatic brain injury without loss of consciousness, initial encounter (principal); E43 Unspecified severe protein-calorie malnutrition; I45.81 Long QT syndrome; R29.6 Repeated falls; E87.6 Hypokalemia; E83.42 Hypomagnesemia; W18.39XA Other fall on same level, initial encounter; D69.6 Thrombocytopenia, unspecified; K74.60 Unspecified cirrhosis of liver; R27.0 Ataxia, unspecified; E87.8 Other disorders of electrolyte and fluid balance, not elsewhere classified; F17.210 Nicotine dependence, cigarettes, uncomplicated; I10 Essential (primary) hypertension; Y93.89 Activity, other specified; Z91.81 History of falling; Z79.899 Other long term (current) drug therapy; Y92.89 Other specified places as the place of occurrence of the external cause; Z88.0 Allergy status to penicillin; Y99.8 Other external cause status; Z68.26 Body mass index [BMI] 26.0-26.9, adult; Z28.21 Immunization not carried out because of patient refusal
CPT/HCPCS: 10078; 10195; 10204

== ENCOUNTER 2019-12-02 09:24 | Inpatient (IN) | payer OTHER ==
[~2019-12-02] VITALS: Ht 154.9 cm; Wt 62.8 kg
--- NOTE | ~2019-12-02 | H ---
[facility] [place] [address] HISTORY AND PHYSICAL Name: EILEEN GRAVES Room #: 512-P ADM IN M.R.#: [id number] Admission: 12/02/19 Attend Phys: Amado Smith MD Discharge: Date of : 70 Report #: [id number] THIS REPORT FOR: cc: Merritt Proctor,Amado Casper MD ~ CC: Amado Proctor DATE OF SERVICE: 12/02/2019 HISTORY OF PRESENT ILLNESS: The patient is admitted on 12/02/2019 for acute in-hospital inpatient rehabilitation. She had a fall at home and was originally hospitalized at [facility] with a right frontal intraparenchymal hemorrhage that was noted post fall. She was seen by Neurosurgery. Conservative treatment has been recommended. She also was evaluated by Cardiology and Neurology. She was found to have a cardiac murmur, which was previously known and has been followed by Cardiology. She also has a history of ETOH abuse and hepatic encephalopathy. The patient has left-sided weakness and significant decrease in her functional abilities and has been admitted for acute in-hospital inpatient rehabilitation. PAST MEDICAL HISTORY, ALLERGIES, PAST SURGICAL HISTORY, HABITS: Please see the history and physical documentation. MEDICATIONS: Please see the MAR. SOCIAL HISTORY: As noted. Lives with her and 2 daughters, 3 steps and did not utilize gait aids. She is right handed. She is driving. REVIEW OF SYSTEMS: No complaints of chest pain, shortness of breath, abdominal discomfort. Please see the full review of systems as noted. Has some frustration with her current condition. PHYSICAL EXAMINATION: GENERAL: The patient is a 49-year-old white female who is not in any distress. Alert. VITAL SIGNS: Last recorded temperature 98.4, pulse 85, respirations 18, blood pressure 125/64. HEENT: Facies appeared symmetric. EOMs appeared full. No obvious visual field neglect to confrontation. Some latency to her responses, but she can follow basic 1 step commands. CHEST: Sounded clear to auscultation. CARDIOVASCULAR: Sounded regular rate and rhythm. ABDOMEN: Bowel sounds positive, nontender. GENITOURINARY AND RECTAL: Deferred. [facility] [address] [place] [address] HISTORY AND PHYSICAL Name: EILEEN GRAVES Room #: 512-P [facility] IN .R.#: [id number] Admission: 12/02/19 Attend Phys: Amado Smith MD Discharge: Date of : 70 Report #: [id number] EXTREMITIES: Functional range of motion. Strength of the right upper and right lower extremity without focal weakness. Left upper extremity, she can move the left wrist extension a grade 3+, some flexion, but I could not get her to volitionally move that left proximal upper extremity, shoulder or elbow. Left lower extremity, she was able to do a slight amount of extension. a grade 3 and could dorsiflex a grade 3. Sensory examination appeared reasonably intact to simultaneous stimulation. Tone appeared to be reasonably symmetric. There is no distal edema, no focal calf swelling. She is needing assistance with basic functional mobility skills, more of a mod assist level. ASSESSMENT: A 49-year-old female with the following problem list: 1. 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 2. Fall with closed head injury. 3. Gait ataxia. 4. Thrombocytopenia. 5. Electrolyte abnormalities. 6. ETOH abuse history. 7. Cardiac murmur. 8. Prolonged QT. 9. Hypertension. PLAN: The patient has been admitted for an acute in-hospital inpatient rehabilitation. Please see the documented history and physical. From a post-admission physician evaluation perspective, there are no relevant changes since the preadmission screening. See the above review of prior and current medical and functional conditions and comorbidities. Please see the patient's previous and current functional status. As far as risk of complications, she has multiple medical comorbidities as noted above. Initial plan of care involves the interdisciplinary acute inpatient rehabilitation program. Measurable functional goals would be for the patient to become modified independent with transfers, mobility, ADLs, improved cognition, so she can hopefully return back to her prior living situation. Prognosis is reasonably good with estimated length of stay probably at least 2-3 weeks. Potential barriers would include her multiple medical comorbidities and decreased functional status. By: 29 58 Amado Smith MD /nt
--- NOTE | ~2019-12-02 | PLAN ---
[facility] [place] [address] REHAB UNIT PLAN OF CARE Name: EILEEN GRAVES Room #: 512-P DIS IN M.R.#: [id number] Admission: 12/02/19 Attend Phys: Amado Smith MD Discharge: 12/05/19 Date of : 70 Report #: [id number] THIS REPORT FOR: //name// CC: Amado Proctor DATE OF SERVICE: 12/05/2019 PROGRESS NOTE AND OVERALL PLAN OF CARE HISTORY OF PRESENT ILLNESS: The patient is seen back today in followup. She had a decline noted over the weekend with increased left-sided weakness. She was seen by Neurology. MRI of the brain showed no change of her prior intracerebral hemorrhage. She is scheduled for an EEG today. Hospitalist service has been following her as well. There was a concern regarding more left-sided neglect by therapy. She is continuing on steroids. She is on Keppra IV. On examination this morning, she arouses, does not fix and follow for me, but will drift back to sleep and appears to be more somnolent. She appears to have a left visual field decreased, but it is difficult to fully ____. She has left upper extremity proximal weakness at least a 2-/5. She does have a little movement of that wrist and hand, probably at 3/5. Left lower extremity was somewhat difficult to assess as she again is rather sleepy. Functionally, transfers have been at a max assist as of yesterday declining from prior mod assist. She has been unable to ambulate. In occupational therapy, she is being assessed regarding dressing activities depending upon her tolerance level, noted to have severe comprehension deficits, [id number] cognitive deficits as of 12/03/2019. ASSESSMENT: 1. 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 She appears to have had a decline over the weekend with Neurology involved in followup MRI of the brain is noted. She is on dexamethasone and Keppra. She is to have an EEG today. 2. Falls with closed head injury. 3. Gait ataxia. 4. Thrombocytopenia. 5. Electrolyte abnormalities. 6. ETOH abuse history. 7. Cardiac murmur. 8. Prolonged QT. 9. Hypertension. PLAN: We will need to see how things go as far as her tolerance for therapies. Neurology has been contacted again this morning by nursing [place] [address] REHAB UNIT PLAN OF CARE Name: EILEEN GRAVES Room #: 512-P [facility] IN ..#: [id number] Admission: 12/02/19 Attend Phys: Amado Smith MD Discharge: 12/05/19 Date of : 70 Report #: [id number] service is involved. The goal is hopefully to try to improve her functional independence with the inpatient rehabilitation therapy program depending how she does. The overall plan of care is based on the preadmission screen, post-admission physician evaluation and information garnered from therapy assessments. 1. Estimated length of stay is uncertain at this time, at least 2 weeks, but again will need to see how things progress. 2. Medical prognosis is reasonably good, but again she is currently being further assessed. 3. Anticipated interventions include the interdisciplinary acute inpatient rehabilitation program. She has Neurology and Internal Medicine actively involved. 4. Anticipated functional outcomes would be hopefully to try to get her to the point where she can again be up moving around ideally at least at a wheelchair level or if we can get her up more independent than that. 5. Discharge destination would be back home with her and family. 6. Expected therapy by discipline includes PT, OT and speech 1 hour per day each five days a week throughout the duration of the acute inpatient rehabilitation stay. ADDENDUM The patient did miss some therapy on 12/03/2019 due to testing. By: 0820 0851 Amado Smith MD /nt
[2019-12-02] MEDS ORDERED: KEPPRA 500 MG500 MG PO (12:06)
[2019-12-02] MEDS ORDERED: DECADRON4 MG PO (12:08)
[2019-12-02 15:15] VITALS: BP 109/60
[2019-12-02 20:00] VITALS: BP 129/60
--- NOTE | 2019-12-02 20:45 | NUR ---
ASSUMED CARE OF PT AT 1430 WHEN PT ADMITTED TO UNIT. REPORT RECEIVED BY PREVIOUS NURSE PRIOR TO PT BEING BROUGHT TO UNIT. ADMISSION PAPERWORK COMPLETED, CONSULTS CALLED, ASSESSMENT AND HX COMPLETED. PT ORIENTED TO UNIT. ADMISSION VS COMPLETED. SKIN INTACT. MILD JAUNDICE NOTED TO SKIN AND SCLERA. PT IS A&OX4, FLAT AND WITHDRAWN. MURMUR NOTED ON AUSCULTATION, LUNG SOUNDS CLEAR/DIMINISHED, BOWEL SOUNDS ACTIVE IN ALL QUADRANTS. REPORTED NAUSEA AT SHIFT CHANGE, RELIEVED BY PRN MEDICATIONS AND COOL RAG. SIGNIFICANT LEFT SIDED WEAKNESS NOTED. CALLS APPROPRIATELY FOR ASSISTANCE. FALL PRECAUTIONS IN PLACE. NURSING WILL CONTINUE TO MONITOR.
--- NOTE | 2019-12-03 01:54 | NUR ---
STAND PIVOT TO C FOR VOID. LEFT HEMIPARESIS. ABLE TO SWALLOW PILLS WHOLE WITH WATER.
[2019-12-03 04:40] LABS: ALBUMIN 2.5 g/dL (3.4-5.0); CREATININE 0.8 mg/dL (0.6-1.0); DIRECT BILIRUBIN 1.1 mg/dL (<0.1-0.2); POTASSIUM 4.5 mmol/L (3.5-5.1); TOTAL BILIRUBIN 2.9 mg/dL (<0.1-1.0); TOTAL PROTEIN 5.3 g/dL (6.4-8.2)
[2019-12-03 04:41] LABS: HEMATOCRIT 33.5 % (37.0-47.0); HEMOGLOBIN 11.5 gm/dL (12.0-15.0); MCH 34.7 pg (26.0-34.0); MCHC 34.3 g/dL (28.0-37.0); MCV 101.1 fL (80.0-100.0); RBC 3.32 mil/uL (4.20-5.00); RDW 15.4 % (10.5-14.5); WBC 9.4 thou/uL (4.0-11.0)
[2019-12-03 07:45] VITALS: BP 113/59
[2019-12-03 11:36] LABS: INR 1.5; PROTIME 15.2 Seconds (9.3-11.4)
[2019-12-03 20:00] VITALS: BP 104/60
--- NOTE | 2019-12-03 20:43 | NUR ---
ASSUMED CARE OF PT AT 0700. PT IS A&OX4 AND VITAL SIGNS ARE STABLE. PT REPORTS HEADACHE 11/14, MANAGED WITH PO MEDICAITONS ORDERED. DURING AM CARES NOTED CHANGES TO PT INCLUDING LEFT SIDED NEGLECT AND INCREASING LEFT SIDED WEAKNESS, THERAPIST NOTED WELL AND NEUROLOGY NOTIFIED WELL HOSPITALIST. ORDERS FOR CT SCAN AND MRI, RESULTS CALLED TO PROVIDERS. NURSING TO CONTINUE MONITORING PT. NIH STROKE SCALE 14 ON ASSESSMENT. NEUROCHECKS EVERY 2 HOURS WITH VITAL SIGNS COMPLETED. NO SIGNIFICANT CHANGES NOTED. PT IN BED. FALL PRECAUTIONS IN PLACE, NURSING WILL CONTINUE TO MONITOR.
[2019-12-03 22:00] VITALS: BP 110/54
--- NOTE | 2019-12-03 23:48 | NUR ---
PT ASSESSMENT COMPLETED AND VSS. MEDS GIVEN ORDERED AND WELL TOLERATED. FALL PRECAUTIONS IN PLACE. PT VERY WEAK THIS EVENING AND HAVING TROUBLE HELPING STAFF ROLL IN BED. CONTACTED JORGE A GIL WITH SCAN RESULTS AND UPDATED HER ON PT STATUS WHICH REMAINS THE SAME EARLIER IN THE DAY/DRS AWARE. PT REMAINS WEAK WITH VISUAL NEGLECT/DR MAY AWARE AND FOLLOWING. SPIRONOLACTONE HELD THIS EVENING PER JORGE A GIL VERBAL ORDER. Q2 HOURS VS CHECKS CONTINUE AND ARE WNL AT THIS TIME. ASST WITH FREQUENT REPOSITION FOR COMFORT. INC OF LARGE AMOUNTS OF URINE. SLEEPING. AROUSES EASILY. NEURO CHECKS CONTINUE. WILL CONTINUE TO MONITOR FREQUENTLY.
[2019-12-04] VITALS (13 sets, daily range): BP systolic 114–1118; BP diastolic 7–76
--- NOTE | 2019-12-04 05:26 | NUR ---
PT STATUS HAS NOT CHANGED SINCE DAYS. RN ON DAYS STATED THAT PT WAS LETHARGIC AND CONFUSED AND THAT PT WAS NOT ABLE TO SEE THINGS IN HER LEFT VISUAL FIELD. DURING THE NIGHT PT WAS VERY TIRED BUT AROUSABLE. SHE WAS ALERT AT TIMES AND OTHER TIMES VERY TIRED AND NOT ABLE TO TRACK MY FINGER OR ANSWER QUESTIONS APPROPRIATELY. THIS IS NOT NEW AND WHAT SHE WAS DOING FOR DAY RN AND DOCTORS. SHE HAD A VERY ABSENT STARE AT TIMES. OTHER TIMES SHE WAS ABLE TO RESPOND TO QUESTIONS APPROPRIATELY AND WAS ALBE TO FOLLOW COMMANDS. 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 LEFT SIDE STILL FLACID. VSS DURING THE NIGHT WITH Q 2 HOURS CHECKS. WILL CONTINUE TO MONITOR FREQUENTLY.
--- NOTE | 2019-12-04 12:46 | NUR ---
ASSUMED CARE OF PT AT 0730. PT IS A&O TO SELF. IS SELECTIVE IN QUESTIONS ANSWERED. SLOW TO RESPOND AT TIMES. OBSERVED PT TALKING TO SPOUSE ON CELL PHONE. PT ANSWERED ALL OF HIS QUESTIONS APPROPRIATELY. PT DENIES PAIN. IS STABLE. IS ON ROOM AIR. Q2H VITALS & NEURO CHECKS CONTINUED THIS SHIFT. PT HAS LEFT SIDED FLACIDITY. STRONG PHARMACY TECHNOLOGIST WITH RIGHT HAND. IS ABLE TO HELP STAND WITH STRONG LEG ON RIGHT WITH QUEING. IS UP WITH 2 ASSIST, STAND PIVOT, GB, TO W/C. FALL PRECAUTIONS & HOURLY ROUNDING CONTINUED THIS SHIFT. LABS REVIEWED. VITALS ASSESSED. PT IS CURRENTLY SITTING UP IN W/C IN DINNING ROOM WITH NURSE. JUST COMPLETED LUNCH. Q2H TURNS. IS INCONT TO B&B. CLOSELY MONITORING PATIENT. SAFETY BELT IN PLACE. PT FAVORS RIGHT SIDE & HAS DIFFICULTY WITH SITTING UP INDEPENDENTLY ON SIDE OF BED. SPOKE WITH SPOUSE THIS AM. HE WOULD LIKE TO BE UPDATED REGULARLY REGARDING PT CONDITION & WOULD LIKE TO BE SURE THAT HE SPEAKS WITH SPOUSE. WILL CONTINUE TO MONITOR.
--- NOTE | 2019-12-05 01:00 | NUR ---
PT ASSESSMENT COMPLETED AND VSS. MEDS GIVEN ORDERED AND WELL TOLERATED. FALL PRECAUTIONS IN PLACE. ASST WITH FREQUENT REPOSITION FOR COMFORT. INC OF LARGE AMOUNT OF YELLOW URINE. ANOOP CARE PROVIDED. VSS WITH Q 2 HOUR CHECKS. NEURO CHECKS DURING THE NIGHT. PT GOES FROM TALKING AND ANSWERING QUESTIONS APPROPRIATELY TO VERY FATIGUED AND NOT TALKING. PT LOOKED VERY UPSET AT ONE POINT DURING THE NIGHT. ASKED PT IF SHE WAS FEELING SAD. SHE SAID YES AND STARTING CRYING. ASKED PT IF SHE WAS SCARED AND SHE SAID YES. SPENT A LONG TIME TALKING WITH PT AND ENCOURAGING HER. WILL INFORM DAY RN ABOUT CONCERNS THAT PT IS STRUGGLING WITH DEPRESSION. SLEEPING AT THIS TIME. RA SAT WNL. WILL CONTINUE TO MONITOR FREQUENTLY. PT SPENDS A LOT OF TIME KICKING HER LEGS MOVING HER RIGHT ARM. SHE IS CONSTANTLY PULLING OFF HER GOWN AND BLANKETS. BED PADDED FOR SEIZURE PRECAUTIONS. NO SEIZURES NOTED. WILL CONTINUE TO MONITOR FREQUENTLY.
[2019-12-05 02:00] VITALS: BP 116/64
[2019-12-05 04:00] VITALS: BP 121/56
[2019-12-05 05:38] VITALS: BP 129/66
[2019-12-05 07:10] VITALS: BP 131/69
[2019-12-05 07:57] LABS: HEMATOCRIT 34.9 % (37.0-47.0); HEMOGLOBIN 12.3 gm/dL (12.0-15.0); MCH 35.1 pg (26.0-34.0); MCHC 35.2 g/dL (28.0-37.0); MCV 99.8 fL (80.0-100.0); RBC 3.5 mil/uL (4.20-5.00); RDW 15.3 % (10.5-14.5); WBC 6.1 thou/uL (4.0-11.0)
--- NOTE | 2019-12-05 08:08 | NUR ---
ASSUME PT CARE AT 0700. VSS ON RA.134/ 68 HR 79, R 18,02 97% ON RA. BS 135. UNRESPONSIVE, FLAT AFFECT. NO SIGN OF DISCOMFORT. DR. VARGAS CAME TO SEE PT. NIGHT RN CALLED AND NOTIFIED DR. RODRIGUEZ. NIGHT NURSE GAVE IV KEPPRA 1000MG. CALLED RAPID RESPONSE TO EVALUATE AND R/O STROKE. WILL CONTINUE TO MONITOR.
[2019-12-05 08:10] VITALS: BP 134/60
[2019-12-05 08:22] LABS: ALBUMIN 2.5 g/dL (3.4-5.0); CALCIUM 9.5 mg/dL (8.5-10.1); CREATININE 0.8 mg/dL (0.6-1.0); POTASSIUM 4.2 mmol/L (3.5-5.1); TOTAL BILIRUBIN 4.1 mg/dL (<0.1-1.0); TOTAL PROTEIN 5.3 g/dL (6.4-8.2)
--- NOTE | 2019-12-05 08:34 | NUR ---
RAPID RESPONSE CALLED, PT MORE LETHARGIC THAN PREVIOUS SHIFT PER NURSE REPORT. PT WILL OPEN EYES TO NAME BUT WILL NOT RESPOND VERBALLY. INCREASE KEPPRA FROM 500 TO 1000 BID YESTERDAY. PHYSICIAN PLAN TO CHECK ABG, CT HEAD AND EEG TODAY. KEEP IN PLACE AND SEE IF PT WAKES UP SOME. HIMS TREE FELLER OPERATOR AT BEDSIDE DOING ASSESSMENT NOW. CHECK RAP FLOW SHEET FOR VSS.
--- NOTE | 2019-12-05 08:38 | NUR ---
THIS AM PT WAS AWAKE BUT NOT ANSWERING QUESTIONS OR TRACKING. CONCERNED ABOUT POSSIBLE ABSENT SEIZURES. VSS AT THE TIME. BG WNL. CONTACTED REGIONAL ENVIRONMENTAL MANAGER JEFFERY WITH CONCERN. SHE AGREED THAT PT MIGHT BE HAVING ABSENT SEIZURES AND ASKED FOR NEURO TO BE CONTACTED. PER DR RODRIGUEZ ORDERED ROUTINE EEG FOR TODAY/CBD/CMP AND TO GIVE AN INCREASED DOSE OF 1000 KEPPRA IV PUSH. STARTED AN IV IN PTS RIGHT FA. GAVE KEPPRA IVP SLOWLY ORDERED. PTS VS REMAINED WNL. PT STATUS DID NOT CHANGE. INFORMED DR VARGAS RIGHT AWAY. CALLED NEURO BACK AND DECIDED TO CALL A RAPID BECAUSE OF CONCERNS. TEAM AT BEDSIDE. SPOKE WITH NEURO DR JOLLEY. HE SUGGESTED THAT PT BE TRANSFERED BUT WANTED PRIMARY TO ORDER IF NEEDED WELL CONTACT NEURO SURGERY AND MAKE PT EEG STAT INSTEAD OF ROUTINE. PT STATUS REMAINED THE SAME. SPOKE WITH DR MARTHA CALVIN WITH NEUROSURGERY. SHE SAID THAT WE SHOULD MOVE THE PT TO ICU AND DO A STAT CT OF THE HEAD WITHOUT CONTRAST. RAPID RESPONSE TEAM SPOKE WITH PRIMARY WHO SUGGESTED THAT SINCE THE PT IS STABLE WE SHOULD DO TESTING AND WATCH PT FOR NOW. PRIMARY WILL DECIDE IF TRANSFER OF PT IS NECESSARY AFTER TESTING. DAY RN SR AGUILERA AWARE AND WILL CONTINUE PT CARE AT THIS TIME.
--- NOTE | 2019-12-05 08:54 | NUR ---
CONTACTED PTS THIS AM AND TALKED WITH HIM ABOUT HOW PT WAS ABSENT AT TIMES AND OTHER TIMES RESPONDING TO QUESTIONS. EXPLAINED TO HIM THAT HE COULD CALL AT ANY TIME WITH CONCERNS OR FOR UPDATES. INFORMED HIM THAT STAFF WILL CONTACT HIM WITH UPDATES NEEDED. PTS IS CONCERNED THAT MAYBE THE SEIZURE MEDICATION IS MAKING HER WORSE AND WOULD LIKE TO TALK WITH NEUROLOGY ABOUT THIS AND GET FEEDBACK. INFORMED DAY RN TO UPDATE WITH PT STATUS BECAUSE HE IS WORRIED AND IS NOT ABLE TO COME TO THE HOSPITAL AT THIS TIME BECAUSE OF COVID 19.
[2019-12-05 08:55] LABS: BE(vivo) 2.9 mmol/L (-2 to +3); HCO3 25.8 mmol/L (22.0-26.0); PCO2 33.9 mmHg (35.0-45.0); pH 7.499 (7.360-7.450); sO2 96.8 % (92.0-98.0)
[2019-12-05 11:15] VITALS: BP 123/64
--- NOTE | 2019-12-05 12:30 | NUR ---
chart review. unable to visit with pt, she not able to answer phone at this time. nail galvanizer and dr calero here for visit. noted in chart. pt lives at home with and children. she was independent prior to hospital, doing things with kids, working out, going to school working on her masters, per chart. will cont following as needed for dc needs.
--- NOTE | 2019-12-06 08:53 | EKG ---
[facility] [place] [address] ELECTROCARDIOGRAM REPORT Name: EILEEN GRAVES Room #: 512-[facility] IN M.R.#: [id number] Admission: 12/02/19 Attend Phys: Amado Smith MD Discharge: 12/05/19 Date of : 70 Report #: [id number] THIS REPORT FOR: cc: Merritt Proctor James A. DO Lundgren, Craig H. 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 12/06/19 0851 2 2 Neymar Shultz MD, [facility] /EPI
== END 2019-12-05 14:30 | disposition short-term general hospital (02) | DRG 56 ==
PROVIDERS: Hospitalist; Nurse Practitioner Family; Psychiatry & Neurology Neurology; ADMIT Physical Medicine & Rehabilitation
DX: I69.354 Hemiplegia and hemiparesis following cerebral infarction affecting left non-dominant side (principal); I61.9 Nontraumatic intracerebral hemorrhage, unspecified; E46 Unspecified protein-calorie malnutrition; S09.90XA Unspecified injury of head, initial encounter; R26.0 Ataxic gait; D69.6 Thrombocytopenia, unspecified; I10 Essential (primary) hypertension; F17.210 Nicotine dependence, cigarettes, uncomplicated; K74.60 Unspecified cirrhosis of liver; F41.9 Anxiety disorder, unspecified; K72.90 Hepatic failure, unspecified without coma; E87.6 Hypokalemia; E83.42 Hypomagnesemia; Z68.26 Body mass index [BMI] 26.0-26.9, adult; Z88.0 Allergy status to penicillin; W18.39XA Other fall on same level, initial encounter; Y93.89 Activity, other specified; Y92.89 Other specified places as the place of occurrence of the external cause; Y99.8 Other external cause status
CPT/HCPCS: 10112

== ENCOUNTER 2019-12-05 15:05 | Inpatient (IN) | payer OTHER ==
[~2019-12-05] VITALS: Ht 154.9 cm; Wt 66.9 kg
--- NOTE | ~2019-12-05 | EEG ---
[facility] [place] [address] ELECTROENCEPHALOGRAM Name: EILEEN GRAVES Room #: 216-P ADM IN M.R.#: [id number] Admission: 12/05/19 Attend Phys: Justin Stanton MD Discharge: Date of : 70 Report #: [id number] THIS REPORT FOR: //name// CC: Merritt Stanton DATE OF SERVICE: 12/05/2019 This patient is being evaluated for altered mental status. EEG was done by placing the electrode by standard 10-20 system of electrode placement. Both referential and sequential montages were used for recording. Background activity in this patient's EEG is very disorganized and poorly formed. It goes to about 5-6 Hz. Triphasic waves are present, but they are not necessarily frontally predominant. Independent of those triphasic waves, there are spike and slow wave activity present, especially in the right cerebral hemisphere. Photic stimulation is unremarkable. IMPRESSION: This is a severely abnormal EEG because it is very disorganized and poorly formed with triphasic waves. That finding will be consistent with encephalopathy. In addition this patient's EEG demonstrates epileptiform activity arising from the right cerebral hemisphere. Clinical correlation is recommended. Thank you very much for this referral and a repeat EEG should be done to compare this EEG with the prior EEG. By: 1658 1713 Mehrdad Lebron MD /nt
--- NOTE | ~2019-12-05 | EEG ---
[facility] [place] [address] ELECTROENCEPHALOGRAM Name: EILEEN GRAVES Room #: 215-P ADM IN M.R.#: [id number] Admission: 12/05/19 Attend Phys: Justin Stanton MD Discharge: Date of : 70 Report #: [id number] THIS REPORT FOR: //name// CC: Merritt Stanton DATE OF SERVICE: 12/07/2019 The patient is being evaluated for altered mental status. EEG was done and was compared with the EEG from the last EEG. This patient's background activity goes up to about 7 Hz and 30 microvolt. It is intermixed with slower activity. Triphasic waves and epileptiform activity has mostly disappeared. Photic stimulation is unremarkable. IMPRESSION: Significant improvement in the patient's EEG since last time. EEG is still slow and intermixed with theta range slowing on both sides. However, epileptiform activity has disappeared and triphasic waves have also disappeared. Clinical correlation is recommended and interval EEG may be done to further evaluate this patient. By: 1430 1443 Mehrdad Lebron MD /nt
[2019-12-05 14:45] VITALS: BP 137/72
[~2019-12-05 15:05] MED LIST changes: +DECADRON4 MG PO; +KEPPRA 500 MG500 MG PO
--- NOTE | 2019-12-05 15:45 | NUR ---
PT TRANSFERRED FROM AND RN REPORTS PATIENT WAS HAVING SEIZURES THIS MORN...TRANSFERRED TO HAVE CLOSER MONITORING AND IV SEIZURE MED THAT NEEDS TELE...PT FLACID ON LEFT...NO VERBAL RESPONSE...LT ARM POSTURING...RT LEG LIFTS UP AND DOWN IN BED...EYES OPEN BUT DOES NOT TRACK...
[2019-12-05 18:31] LABS: URINE BILIRUBIN NEGATIVE (Negative); URINE BLOOD NEGATIVE (Negative); URINE COLOR YELLOW; URINE GLUCOSE-RANDOM* NEGATIVE (Negative); URINE KETONES NEGATIVE (Negative); URINE LEUKOCYTES-REFLEX NEGATIVE (Negative); URINE NITRITE-REFLEX NEGATIVE (Negative); URINE PROTEIN (DIPSTICK) NEGATIVE (Negative); URINE UROBILINOGEN 0.2 E.U./dl (0.2-1.0)
[2019-12-05 18:33] LABS: URINE CLARITY HAZY
[2019-12-05 19:56] VITALS: BP 135/77
--- NOTE | 2019-12-05 20:33 | NUR ---
PT TRANSFERRED TO ICU PER DR ORDERS FOR CLOSER MINITORING..
--- NOTE | 2019-12-05 20:49 | NUR ---
ARRIVED ON ICU FROM AT THIS TIME. SETTLED INTO ROOM. INITIAL ASSESSMENT COMPLETED. PATIENT IS COMFORTABLE.
[2019-12-05 21:17] VITALS: BP 136/65
[2019-12-05 22:00] VITALS: BP 124/65
[2019-12-05 23:00] VITALS: BP 117/63
[2019-12-06] VITALS (23 sets, daily range): BP systolic 109–141; BP diastolic 58–74
[2019-12-06 05:43] LABS: HEMATOCRIT 36.1 % (37.0-47.0); HEMOGLOBIN 12.7 gm/dL (12.0-15.0); MCV 99.9 fL (80.0-100.0); PLATELET COUNT 68 thou/uL (150-400); RBC 3.62 mil/uL (4.20-5.00); RDW 15.4 % (10.5-14.5); WBC 5.6 thou/uL (4.0-11.0)
[2019-12-06 05:52] LABS: CALCIUM 8.1 mg/dL (8.5-10.1); CREATININE 0.8 mg/dL (0.6-1.0); MAGNESIUM 1.8 mg/dL (1.8-2.4); POTASSIUM 3.9 mmol/L (3.5-5.1)
[2019-12-06 06:17] LABS: ABSOLUTE NEUTROPHILS 4.4 thou/uL (1.4-8.2)
[2019-12-06 06:18] LABS: ANISOCYTOSIS 1+; PLATELET ESTIMATE DECREASED; POIKILOCYTOSIS 1+; SCHISTOCYTES 1+
--- NOTE | 2019-12-06 06:44 | NUR ---
ASSESSMENTS CHARTED, MEDS GIVEN CHARTED. PATIENT IN BED DURING SHIFT. RESTLESS DURING NIGHT, MOVING RIGHT ARM AND LEG FREQUENTLY DURING NIGHT. ABLE TO ANSWER QUESTIONS WITH SHORT ANSWERS GIVEN TIME. LEFT UPPER ARM POSTURING, LEFT LOWER EXTREMITY MOVEMENT TO PAIN ONLY. ON ROOM AIR. GARZA IN PLACE, NO BOWEL MOVEMENT DURING SHIFT. FALL PRECAUTIONS IN PLACE.
--- NOTE | 2019-12-06 06:45 | NUR ---
PATIENT TRANSFERRED TO ICU DUE TO A CHANGE IN MEDICAL STATUS, WILL AWAIT NEW OT ORDERS WHEN APPROPRIATE.
--- NOTE | 2019-12-06 07:49 | NUR ---
ORDERS FOR EVAL AND TREAT HOWEVER Pt TRANSFERRED TO ICU. WILL PLACE ON HOLD AND AWAIT NEW ORDERS WHEN Pt IS APPROPRIATE FOR THERAPY
[2019-12-06 08:50] LABS: ALBUMIN 2.7 g/dL (3.4-5.0); DIRECT BILIRUBIN 1.7 mg/dL (<0.1-0.2); TOTAL PROTEIN 5.3 g/dL (6.4-8.2)
--- NOTE | 2019-12-06 10:42 | NUR ---
chart review. pt up in bed with bedside nurse in room with her. report from bedside nurse " she is talking some today, left side is flaccid"/bedside nurse. pt was up on acute 5n rehab when had sig changes yesterday, had testing and was brought down for closer monitoring. pt had testing yesterday. noted per chart she was independent prior to hospital, takes care for children, goes to gym works out, goes to school working on her masters. no dme. ranch style home with 12 steps to laundry room. can assist with laundry per chart. cm left message with spouse cancino. will cont following as needed for dc needs.
--- NOTE | 2019-12-06 17:07 | NUR ---
ASSUMED CARE OF PT AT SHIFT CHANGE. ASSESSMENTS CHARTED. MEDS GIVEN PER NOV. PT A&OX4, ANSWERS ALL QUESTIONS APPROPRIATELY WITH A VERY SOFT VOICE. PT PASSED SWALLOW STUDY WITH SPEECH. PT TOLERATED WHOLE MEDS IN PUDDING, MECH SOFT DIET WITH NO DISTRESS. STAT MRI WAS ORDERED BY NEURO, BUT MRI DOWN UNTIL TOMORROW. LEFT MESSAGE WITH DR. RIBEIRO. C/O HEADACHE, 10/17. DECLINED TYLENOL. GAVE REPORT TO CARRIE PAREDES ON DEPARTURE.
--- NOTE | 2019-12-06 18:58 | NUR ---
ASSUMED CARE AT APPROX 1700. PT DROWSY, ORIENTED. VSS. O2 SATS WNL ON ROOM AIR. DENIES SOB/CP. LEFT SIDE CONTINUES TO BE FLACID, HOWEVER RIGHT SIDE IS MOBILE. GARZA INTACT AND DRAINING APPROPRIATELY. PT CURRENTLY RESTING IN BED COMFORTABLY WITH NO NEEDS. REPORT GIVEN TO [facility] NURSE.
[2019-12-07] VITALS (15 sets, daily range): BP systolic 122–147; BP diastolic 62–80
--- NOTE | 2019-12-07 01:38 | NUR ---
Pt is a bit more alert, her voice is stronger and she is able to take her meds w/o difficulty. She asked what is planned for the day, and when I told her she would likely have another MRI, she said she hopes she gets something to help keep her calm for testing. She might benefit having a small dose of xanax or ativan for her anxiety, aside from testing. Vital signs are stable, CRISTAL, her left side remains weak/poorly functional, the monitor reads SR 70's. The bed is in the low/locked position, the bed alarm is set, siderails are up x 4 and the call light is within reach. She is slowly progressing towards her POC goals.
--- NOTE | 2019-12-07 07:36 | NUR ---
Pt's called through the night, he was concerned about his receiving keppra, that she had worsening liver function with that medication, per his report. The med was not available, and was not given. This was relayed to the oncoming RN.
[2019-12-07 07:40] LABS: HEMATOCRIT 35.7 % (37.0-47.0); HEMOGLOBIN 12.4 gm/dL (12.0-15.0); MCHC 34.8 g/dL (28.0-37.0); MCV 100.5 fL (80.0-100.0); RBC 3.55 mil/uL (4.20-5.00); RDW 15.9 % (10.5-14.5); WBC 6.8 thou/uL (4.0-11.0)
[2019-12-07 07:48] LABS: CALCIUM 7.8 mg/dL (8.5-10.1); CREATININE 0.7 mg/dL (0.6-1.0); POTASSIUM 3.6 mmol/L (3.5-5.1)
--- NOTE | 2019-12-07 08:00 | NUR ---
OK TO TRANSFER PER DR. RIBEIRO. OK TO TRANSFER PER MILAN AUGUSTE.
--- NOTE | 2019-12-07 08:50 | NUR ---
TO MRI ON MONITOR VIA CART. PT TOLORATED WELL.
--- NOTE | 2019-12-07 11:10 | NUR ---
CALLED DR. ABBOTT. RE TRANSFER ORDERS. PT SITTING UP IN BED FEEDING SELF. SPEECH THERAPY WITH PT WELL.
--- NOTE | 2019-12-07 11:50 | NUR ---
ON-GOING ASSESSMENT: PT IS SLOWLY PROGRESSING. WILL CONTINUE TO MONITOR PATIENTS PROGRESS, [facility] IS CONTINUING TO FOLLOW PATIENT FOR POSSIBLE READMISSION IF SHE CONTINUES TO IMPROVE IN THE NEXT FEW DAYS.
--- NOTE | 2019-12-07 12:00 | NUR ---
TRANSFERED VIA BED ON MONITOR TO CCU ROOM 215. REPORT CALLED. ALL BELONGINGS WITH PT. DR. JARAMILLO'S NURSE STATES OK TO TRANSFER.
--- NOTE | 2019-12-07 18:49 | NUR ---
PT. ARRIVED AT FLOOR AROUND 1230; AOX3; DROWSY; NO C/O PAIN; C/O CONSTIPATION; SCHEDULED LACTULOSE GIVEN; THROUGH THE AFTERNOON HAD SMALL HARD BM; PHYSICIAN NOTIFIED; ORDERS RECEIVED; SEIZURE PRECAUTIONS ON PLACE; GARZA D/C AT 1415; INCONTINENT THROUGH THE AFTERNOON; RESTLESS; TURNED FROM SIDE TO SIDE; SR ON THE MONITOR; ASSESSMENT CHARGED; FOLLOWING POC; WILL PASS ON REPORT;
[2019-12-08 03:48] VITALS: BP 131/63
[2019-12-08 05:28] LABS: INR 1.5; PROTIME 15.2 Seconds (9.3-11.4)
[2019-12-08 05:33] LABS: ALBUMIN 2.4 g/dL (3.4-5.0); CALCIUM 7.6 mg/dL (8.5-10.1); CREATININE 0.7 mg/dL (0.6-1.0); POTASSIUM 3.6 mmol/L (3.5-5.1); TOTAL BILIRUBIN 5.2 mg/dL (<0.1-1.0); TOTAL PROTEIN 5.1 g/dL (6.4-8.2)
[2019-12-08 07:47] VITALS: BP 126/65
[2019-12-08 09:37] LABS: DIRECT BILIRUBIN 1.6 mg/dL (<0.1-0.2)
--- NOTE | 2019-12-08 11:26 | NUR ---
Patient tranferred to acute care from rehab. Rehab liason reports they have auth once patient medically stable to return to acute rehab,
[2019-12-08 11:30] VITALS: BP 145/64
[2019-12-08 16:30] VITALS: BP 134/70
--- NOTE | 2019-12-08 17:46 | NUR ---
RECEIVED PT'S CARE AROUND 0715; PT. ON BED; RESTING WITH EYES CLOSED; EQUAL CHEST RISING NOTICED; DURING AM ASSESSMENT PT. AOX4; NO C/O PAIN; AM MEDICATION GIVEN; ENCOURAGED TO EAT BREAKFAST & MEALS THROUGH THE DAY; POOR APPETITE; OT & PT REQUESTED WRIST & BOOT; ORDERED; PLACED ON PT.; PER CLINICAL MOLECULAR GENETICIST REHAB IF POSSIBLE HELP PT. WITH OVER L. SIDE WITH RANGE OF MOTION IN ORDER TO AVOID CONTRACTURES; EXERCISES PERFORMED; TURNED FROM SIDE TO SIDE; ASSESSMENT CHARGED; FOLLOWING POC; WILL PASS ON REPORT;
[2019-12-08 20:00] VITALS: BP 130/65
[2019-12-09 04:00] VITALS: BP 114/61
--- NOTE | 2019-12-09 05:46 | NUR ---
PATIENTS CARES WERE ASSUMED AT SHIFT CHANGE. PATIENT WAS ASSESSED AND MEDS WERE PASSED. PATIENT HAS HAD FREQUENT INCONTENENT URINATION. PATIENT WAS TURNED FROM LEFT TO RIGHT DUE TO LEFT SIDE IS NONFUNCTIONING AT THIS TIME. HOURLY ROUNDS WERE MADE. THE BED IS IN A LOW AND LOCKED POSITION. THE BED ALARM IS ON FOR HER SAFETY.
[2019-12-09] MEDS ORDERED: LACTULOSE20 GM/30 M PO (09:27)
--- NOTE | 2019-12-09 10:10 | NUR ---
Case discussed with the care team. [facility] can accept the pt for readmission to acute rehab today. Nursing and the attending updated. Pt agreeable per nursing. DC plan is for readmission to acute rehab.
[2019-12-09 11:00] VITALS: BP 124/54
--- NOTE | 2019-12-09 13:39 | NUR ---
ASSUMED CARE OF PT AT SHIFT CHANGE. ASSESSMENTS CHARTED. MEDS GIVEN PER NOV. PT A&OX4, PAIN IN HAND TREATED WTIH TYLENOL WITH NEAR COMPLETE RELIEF. WAITING FOR BRACE FOR L FOOT FROM [facility]. PT USES BEDPAN AT THIS TIME. PT TRANSFERRING TO REHAB, [facility]. CALLED REPORT TO
== END 2019-12-09 13:43 | DRG 91 ==
LOC: 2N 15:05 → ICU 15:05 → 2N 16:07 → ICU 20:46 → 2N 12-07 12:36
PROVIDERS: Hospitalist; Nurse Practitioner; ADMIT Physical Medicine & Rehabilitation
DX: G92 Toxic encephalopathy (principal); E43 Unspecified severe protein-calorie malnutrition; G93.5 Compression of brain; E87.1 Hypo-osmolality and hyponatremia; I69.354 Hemiplegia and hemiparesis following cerebral infarction affecting left non-dominant side; K72.90 Hepatic failure, unspecified without coma; G31.84 Mild cognitive impairment of uncertain or unknown etiology; I10 Essential (primary) hypertension; F41.1 Generalized anxiety disorder; F10.11 Alcohol abuse, in remission; R60.0 Localized edema; E80.7 Disorder of bilirubin metabolism, unspecified; F17.210 Nicotine dependence, cigarettes, uncomplicated; R21 Rash and other nonspecific skin eruption; E87.6 Hypokalemia; E83.42 Hypomagnesemia; D69.6 Thrombocytopenia, unspecified; F41.9 Anxiety disorder, unspecified; W18.39XA Other fall on same level, initial encounter; K74.60 Unspecified cirrhosis of liver; R56.9 Unspecified convulsions; G31.2 Degeneration of nervous system due to alcohol; Y93.89 Activity, other specified; Y92.89 Other specified places as the place of occurrence of the external cause; Z88.0 Allergy status to penicillin; Z91.81 History of falling; Y99.8 Other external cause status; Z68.27 Body mass index [BMI] 27.0-27.9, adult
CPT/HCPCS: 10078; 10081

== ENCOUNTER 2019-12-09 09:49 | Inpatient (IN) | payer OTHER ==
[~2019-12-09] VITALS: Ht 154.9 cm; Wt 64.9 kg
[~2019-12-09 09:49] MED LIST changes: +LACTULOSE20 GM/30 M PO
--- NOTE | 2019-12-09 14:36 | NUR ---
1330 ADMITTED TO ROOM 516. PATIENT IS ALERT AND ORIENTED X4. PATIENT HAS LEFT SIDED WEAKNESS. PATIENT HAS LEFT SIDED FACIAL DROOP. HER LEFT LEG IS VERY WEAK. PATIENT HAS S.L. IN HER RIGHT HAND. LUNGS ARE CLEAR. ABD IS SOFT WITH BSX4. PATIENT V0IDED CONCENTRATED YELLOW URINE. PATIENT HAS BRACE ON HER LEFT ARM AND LEG. FALL AND SAFETY PROTOCOLS IN PLACE. DENIES PAIN AT THIS TIME. PT/OT/ST EVALS TO BE DONE IN A.M. PATIENT IS MAX ASSIST OF 2 STAFF WITH TRANSFERS FROM W/C TO BED AND BSC. WILL CONTINUE TO MONITER.
[2019-12-09 20:00] VITALS: BP 135/75
--- NOTE | 2019-12-10 04:41 | NUR ---
assumed care at approx 1900 evening 12/08. pt lying in bed with head of bed elevated. pt incontinent of urine and also requesting bedpan several times in the night. pt given hs meds with pudding tolerating well. pt not sleeping very well calling out frequently for bedpan. seizure precautions in place. bed alarm on and call light in reach. will continue to monitor.
[2019-12-10 05:37] LABS: HEMATOCRIT 35.1 % (37.0-47.0); MCH 34.4 pg (26.0-34.0); MCHC 34.2 g/dL (28.0-37.0); MCV 100.7 fL (80.0-100.0); RBC 3.48 mil/uL (4.20-5.00); WBC 9.3 thou/uL (4.0-11.0)
[2019-12-10 06:14] LABS: CALCIUM 8.6 mg/dL (8.5-10.1); CREATININE 0.6 mg/dL (0.6-1.0); POTASSIUM 3.5 mmol/L (3.5-5.1)
[2019-12-10 08:00] VITALS: BP 121/72
--- NOTE | 2019-12-10 19:17 | NUR ---
ASSUMED CARE AT 0700, PT A&O X 4 BUT CAN BE FORGETFUL. VSS O2 ON RA. PT DENIES ANY PAIN OR DISCOMFORT. TOLERATED MEDS WHOLE WITH WATER. SEIZURE PRECAUTIONS CONTINUED. PARTICIPATED IN SCHEDULED THERAPIES. INCONTINENT OF B&B, LAST BM 12/08/19. RESTING IN BED, CALL LIGHT WITHIN REACH, WILL CONTINUE TO MONITOR PER POC.
[2019-12-10 19:22] VITALS: BP 141/66
--- NOTE | 2019-12-11 01:56 | NUR ---
ASSUMED CARE AT APPROX 1900 EVENING 12/09. PT LYING IN BED WITH HEAD OF BED ELEVATED AT CHANGE OF SHIFT. PT CALLING OUT FOR BEDPAN SEVERAL TIMES TO VOID. FITTED PT WITH EXTERNAL FEMALE CATHETER WITH BRIEF IN PLACE AND APPEARS TO BE WORKIING WELL WITH LARGE AMT URINE IN CANISTER. PT REPORTS PASSING FLATUS BUT NO BM SINCE 12/07. PT WITH C/O MILD NAUSEA, NO VOMITING. GOOD BOWEL SOUNDS. PT REFUSED MIRALAX AND WANTED TO TAKE MOM 1ST FOR CONSTIPATION. PT FORGETFUL AND SLUGGISH AT TIMES WITH CONVERSATION AND RAMBLES ON WITH TALKING AT TIMES. PT CALM AND COOPERATIVE. BED RAILS WITH PADDING IN PLACE. BED ALARM ON AND CALL LIGHT IN REACH. WILL CONTINUE TO MONITOR.
--- NOTE | 2019-12-11 15:56 | NUR ---
ASSUMED CARES AT 0700. PT SLEEPY, ALERT AND ORIENTED*4. VITALS REMAIN STABLE. C/O ABDOMINAL DISCOMFORT AND POSSIBLE CONSTIPATION. ABDOMEN SOFT BUT DISTENDED. BS HYPERACTIVE *4. ORDER RECEIVED FOR FLEET ENEMA AND ADMINISTERED. PT HAD *2 XLG (HARD -SOFT - DIARRHEA) INCONTINENT BM, CLEANED AND BEDDINGS CHANGED. SEIZURE PRECAUTIONS MAINTAINED. PT REMAINS FLACCID ON LEFT SIDE. UP WITH MAX ASSIST OF 2 PIVOT TRANSFER TO CHAIR AND BACK TO BED, TOLERATED WELL. Q1H VISUAL CHECKS. CALL LIGHT WITHIN REACH. FALL PRECAUTIONS IN PLACE
[2019-12-11 20:25] VITALS: BP 135/66
--- NOTE | 2019-12-11 22:29 | NUR ---
TOOK OVER PT CARE AT 1900. ASSESSMENT DONE AND VSS. MEDS GIVEN ALONG WITH MOM FOR ABD DISCOMFORT PER PT REQUEST. PT CALLING FOR BEDPAN FREQEUNTLY FOR URINATION. FALL PRECAUTIONS IN PLACE. HOURLY ROUNDING. CALL LIGHT IN PLACE. WILL CONTINUE TO MONITOR.
--- NOTE | 2019-12-12 08:38 | NUR ---
ASSUMED CARE AT 0700. PATIENT IS ALERT AND ORIENTED X4, BUT IS IMPULSIVE. PATIENT WAS ABLE TO SQUEEZE WITH HER LEFT HAND WHICH IS STILL WEAK. PATIENT IS ON SZ PRECAUTIONS. PATIENT HAS LEFT SIDED WEAKNESS R/T RIGHT CVA. LUNGS ARE CLEAR. ABD IS SOFT WITH BSX4. UP IN THE BED FOR MEALS. PATIENT IS TO WEAR BRACE TO LEFT ARM AND LEFT LEG AFTER O.T. PATIENT IS CONTINENT OF BOWEL AND BLADDER. PATIENT USES THE BEDPAN TO VOID TEA COLORED URINE. FLUIDS ENCOURAGED PO. SKIN IS PALE YELLOW COLOR. FALL AND SAFETY PROTOCOLS IN PLACE. DENIES ANY PAIN AT THIS TIME. CONTINUES TO PROGRESS TOWARDS D/C GOALS. WILL CONTINUE TO MONITER.
[2019-12-12 10:37] VITALS: BP 114/73
--- NOTE | 2019-12-12 13:01 | NUR ---
Nutrition: pt admitted to rehab unit S/P right frontal intraparenchymal hemorrhage. Seen due to consult related to poor intake. Pt intake is highly variable averaging 40% of meals past week. Is tiring of ensure pudding which is ordered on trays to be given with pills. Request regular pudding as pt prefers ensure enlive drinks which provide significantly more kcals/protein. Reports also tiring of gravy but this is required on meats with current dysphagia diet. ST follows for mild/moderate dysphagia and upgrade trials. Hx ETOH, hepatitis. NH3-29 on lactulose. C/O decreased appetite related to constipation, 2 bouts within the past week. On bowel regimen and last BM doc / was loose. Reviewed adequate fluid/fiber intake recommendation. Current weight up 20# from reported UBW of 135#. Pt on spironolactone. Place as low risk with nutrition interventions in place. Follow for improved % intake of meals.
--- NOTE | 2019-12-12 14:34 | NUR ---
cm tried calling pt in room, no answer. pt working with therapy today. chart review. pt returned to acute rehab after having to go back to acute hospital last week. per chart review. pt lives in a ranch style home with her and children. she was independent prior to the hospital. goes to college. stairs to basement for laundry. no dme in the past. will cont following as needed for dc needs.
[2019-12-12 20:45] VITALS: BP 137/73
--- NOTE | 2019-12-13 04:39 | NUR ---
Assumed pt care at 1900. A/OX4 with some forgetfulness noted. VSS. Denies pain on assessment. Pt is continent of B&B,using the bedpan with moderate assist. Pt has a little room service manager on left hand,able to push some with the left foot. Pts urine was dark yellow at beginning of shift;PO intake encouraged and yellow in color at this time;has a strong odor to it. Denies dysuria or any discomfort when voiding. Temp 99.2 at HS,Tylenol given and effective 98.0. Rash persisits on chest and BUE,denies any discomfort cream applied as ordered. Siderails padded. Resting quietly w/o distress noted. Fall precautions in place,will continue to monitor pt.
[2019-12-13 05:42] LABS: HEMATOCRIT 31.9 % (37.0-47.0); HEMOGLOBIN 11.2 gm/dL (12.0-15.0); MCH 35.5 pg (26.0-34.0); MCHC 35.2 g/dL (28.0-37.0); MCV 100.8 fL (80.0-100.0); RBC 3.17 mil/uL (4.20-5.00); RDW 15.6 % (10.5-14.5); WBC 6.3 thou/uL (4.0-11.0)
[2019-12-13 05:57] LABS: INR 1.5
[2019-12-13 06:11] LABS: ALBUMIN 1.9 g/dL (3.4-5.0); CALCIUM 9.2 mg/dL (8.5-10.1); CREATININE 0.6 mg/dL (0.6-1.0); POTASSIUM 3.4 mmol/L (3.5-5.1); TOTAL BILIRUBIN 4.5 mg/dL (<0.1-1.0); TOTAL PROTEIN 4.3 g/dL (6.4-8.2)
[2019-12-13 08:00] VITALS: BP 139/69
--- NOTE | 2019-12-13 12:40 | NUR ---
team meeting, recommendation: re team, education for family and to see if what planning they will need for her to come home, she going to need 24hr supervision, with possible 24hr assistance. no driving, assist with pills and bills. will discuss with katie spouse, she might need wheel chair for mobility, incont bladder and incont more at hs. will cont following as needed for dc needs.
--- NOTE | 2019-12-13 13:34 | NUR ---
ASSUMED CARE AT 0700, PT A&O X 4, NO ACUTE DISTRESS NOTED. VSS O2 ON RA. PT DENIES PAIN OR DISCOMFORT. TOLERATED MEDS WHOLE WITH WATER. PARTICIPATED IN CECI THERAPIES. CONTINENT OF B&B, BM 12/12/19. RESTING IN BED, CALL LIGHT WITHIN REACH, WILL CONTINUE TO MONITOR PER POC.
[2019-12-13 19:10] VITALS: BP 118/59
--- NOTE | 2019-12-14 03:40 | NUR ---
Assumed pt care at 1900. Pt's A/OX4 with forgetfulness making needs known appropriately. VSS. Has left hemiparesis;left hand has a weak grasp but LLE is flaccid. Moderate assist with cares,able to help turn to the left side. C/o abd pain/bloating no BM for a day and a half medicated with Miralax and reports passing flatus at this time and denies pain. Pt voiding per bedpan though doesn't void every time, bladder scan done with 272cc noted upon completion of scan pt requested for the bedpan and voided 250cc. Urine dark yellow fluids encouraged and pt verbalizes understanding. Encouraged to try and get some sleep at this time, call light/personal items placed within reach. Will continue to monitor pt.
[2019-12-14 08:15] VITALS: BP 113/63
--- NOTE | 2019-12-14 16:08 | NUR ---
ASSUMED CARE AT 0700, PT A&O X 4, CAN BE FORGETFUL AND IMPULSIVE AT TIMES. VSS O2 ON RA. PT DENIES ANY PAIN OR DISCOMFORT DURING SHIFT. TOLERATED MEDS WITH WATER. PT ALSO RECEIVED PRN MIRALAX AND COLACE FOR BM, LAST BM 12/12/19. BLADDER CONTINENCE DURING SHIFT CONCENTRATED YELLOW URINE NOTED, ENCOURAGED PT TO DRINK MORE FLUIDS. PARTICIPATED IN CECI THERAPIES. RESTING IN BED, CALL LIGHT WITHIN REACH, WILL CONTINUE TO MONITOR PER POC.
[2019-12-14 19:40] VITALS: BP 115/66
--- NOTE | 2019-12-15 01:29 | NUR ---
MOVING SELF IN BED USING RIGHT SIDE ACTIVELY. USED BEDPAN FOR 200 CC URINE AND STATES HAD ACCIDENT WITH INCONTINECE OF THE SAME AMOUNT IF NOT MORE. TOLERATING PILLS AND LACTULOSE WITH SIPS OF WATER, DECLINES PUDDING WITH PILLS. LEMON-TATITLEK SODA OVER ICE PER REQUEST.
[2019-12-15 08:00] VITALS: BP 108/61
--- NOTE | 2019-12-15 16:04 | NUR ---
ASSUMED CARES AT 0700. PT AWAKE, ALERT AND ORIENTED*4. DENIES PAIN. VITALS REMAIN STABLE. LEFT SIDE FLACCID. BS HYPERACTIVE, ABDOMEN SOFT AND SLIGHTLY DISTENDED, *[address] OF HEAD DONE TODAY, NO NEW CHANGES NOTED. PT UP WITH 2 MAX ASSIST, W/C AND TOLERATED WELL. Q1H VISUAL CHECKS. CALL LIGHT WITHIN REACH. FALL PRECAUTIONS IN PLACE
[2019-12-15 20:38] VITALS: BP 110/62
--- NOTE | 2019-12-15 23:17 | NUR ---
TOOK OVER PT CARE AT 1900. ASSESSMENT DONE AND VSS. MEDS GIVEN AND WELL TOLERATED. FALL PRECAUTIONS IN PLACE. SLEEPING WELL OVERNIGHT. CALL LIGHT IN PLACE. HOURLY ROUNDING. WILL CONTINUE TO MONITOR.
[2019-12-16 07:54] LABS: INR 1.4
[2019-12-16 07:59] LABS: DIRECT BILIRUBIN 1.2 mg/dL (<0.1-0.2); TOTAL BILIRUBIN 3.1 mg/dL (<0.1-1.0); TOTAL PROTEIN 4.6 g/dL (6.4-8.2)
[2019-12-16 08:00] VITALS: BP 110/63
--- NOTE | 2019-12-16 11:41 | NUR ---
ASSUMED CARE AT 0700. PATIENT IS ALERT AND ORIENTED X4. FLAT AFFECT. PATIENT IS JAUNDICED. PATIENT HAS LEFT SIDED HEMIPARESIS. PATIEN IS ABLE TO SQUEEZE MY HAND WEAKLY ON THE LEFT. UP TO THE BSC WITH P.5. AND UP IN THE W/C FOR BREAKFAST. BRACE ON HER LEFT ARM AND LEFT LEG. PATIENT IS MAX ASSIST FROM BED TO W/C AND BSC. PATIENT IS VOIDING NESTOR COLORED URINE. FALL AND SAFETY PROTOCOLS IN PLACE. DENIES PAIN AT THIS TIME. PATIENT HAS RASH TO HER CHEST AND ARMS. PATIENT CONTINUES TO GET ABT EYE GTT TO HER RIGHT EYE R/T PINK EYE. RIGHT EYE IS IMPROVING. FALL AND SAFETY PROTOCOLS IN PLACE. DENIES PAIN AT THIS TIME. CONTINUES TO PROGRESS TOWARDS D/C GOALS. WILL CONTINUE TO MONITER.
--- NOTE | 2019-12-16 12:34 | H ---
[facility] [place] [address] HISTORY AND PHYSICAL Name: EILEEN GRAVES Room #: 516-1 ADM IN M.R.#: [id number] Admission: 12/09/19 Attend Phys: Amado Smith MD Discharge: Date of : 70 Report #: [id number] THIS REPORT FOR: cc: Merritt Proctor,Amado Casper MD ~ CC: Amado Proctor DATE OF SERVICE: 12/09/2019 HISTORY AND PHYSICAL/POSTADMISSION PHYSICIAN EVALUATION HISTORY OF PRESENT ILLNESS: The patient is readmitted for acute in-hospital inpatient rehabilitation. She sustained a fall with head injury and a right frontal hemorrhage was on the acute inpatient rehab gonsalez. She was noted to have significant left-sided weakness and ended up being transferred back to the acute Med/Surg gonsalez with worsening mentation and left-sided hemiparesis. MRI did not show any acute change. Neurology and Neurosurgery were involved. GI was consulted. It was noted that hepatic encephalopathy was contributing as well as possible seizures. She has now been readmitted for acute in-hospital inpatient rehabilitation. Please see the history and physical documentation. Please note the prior medical history, social history, habits. She does have a history of prior tobacco and ETOH abuse. Her ammonia was noted to be normal and was thought that her acute mental status was likely multifactorial, postictal intracranial hemorrhage and hepatic encephalopathy. Apparently stopped ETOH 2 years ago. She has been on lactulose during her acute stay prior to admission. REVIEW OF SYSTEMS: No current complaints of chest pain, shortness of breath, abdominal discomfort. Please see the review of systems as noted in the history and physical documentation. PHYSICAL EXAMINATION: GENERAL: She was alert, pleasant. She is in the hospital bed with seizure precautions in place. VITAL SIGNS: Temperature 98.2, pulse 82, respirations 16, blood pressure 124/54. NEUROLOGIC: She is alert. Facies appeared symmetric. I could not detect any obvious visual field neglect to confrontation, although she appears to have some decreased attention to the left side. CHEST: Sounded clear to auscultation. CARDIAC: Regular rate and rhythm. ABDOMEN: There was no tenderness. Bowel sounds were positive. EXTREMITIES: She has functional range of motion. Strength of the right upper and right lower extremity. She has a left wrist-hand orthosis in place. She could wiggle her left index finger slightly. Otherwise, there was no volitional [address] [address] HISTORY AND PHYSICAL Name: EILEEN GRAVES Room #: 516-1 [facility]#: [id number] Admission: 12/09/19 Attend Phys: Amado Smith MD Discharge: Date of : 70 Report #: [id number] movement of that left upper extremity. Left lower extremity, she has a heel protector in place. No volitional movement was noted of the left lower extremity. Tone is slightly increased at the left elbow, negative Danielle's. No clonus at the ankle. Sensation appeared reasonably intact to simultaneous stimulation, bilateral upper and lower extremities. Functionally, she has been at a max assist, bed to chair, mod assist attempting to come to stand. She is noting to demonstrate left environmental neglect. Some extensor tone is noted, left lower extremity. ASSESSMENT: 1. 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 2. Significant left-sided hemiparesis/plegia. 3. Toxic metabolic/hepatic encephalopathy. 4. Seizure history and seizure precautions. 5. Fall with closed head injury. 6. Thrombocytopenia. 7. ETOH abuse history. 8. Hypertension. 9. Tobacco abuse history. PLAN: The patient has been admitted for acute in-hospital inpatient rehabilitation. From a postadmission physician evaluation perspective, there are no relevant changes since the preadmission screening. Please see the above review of prior and current medical and functional conditions and comorbidities. Please see the patient's previous and current functional status. As far as risk of complications, the patient has multiple medical comorbidities as noted above. Initial plan of care involves the interdisciplinary acute inpatient rehabilitation program. Measurable functional goals would be for the patient to become modified independent with transfers, mobility, ADLs, cognition, communication, so she can return back to the home setting. Prognosis is reasonably good. Estimated length of stay is probably at least 2-1/2 to 3 weeks as she is at a lower level with significant left-sided paresis. Potential barriers would include her multiple medical comorbidities and decreased functional status. <ELECTRONICALLY SIGNED> By: Amado Smith MD 12/16/19 1234 [id number] Amado Smith MD /[facility]
[2019-12-16 20:35] VITALS: BP 105/62
--- NOTE | 2019-12-17 05:12 | NUR ---
ROLLING WELL TO SIDE TO GET ON AND OFF BEDPAN WITH ASSIST, HAS BEEN INCONTINENT OVERNIGHT DUE TO UNABLE TO GET ON BEDPAN QUICK ENOUGH. CIPRO EYEDROPS FOR RIGHT EYE PINKEYE WHICH IS NOT BOTHERING HER MUCH. ALSO HAS FINE RED RASH WHICH DOES NOT ITCH THAT WE ARE TREATING WITH TOPICAL HYDROCORTISONE
--- NOTE | 2019-12-17 18:09 | NUR ---
ASSUMED CARE AT 0700, PT A&O X 4, NO ACUTE DISTRESS DURING SHIFT. VSS O2 ON RA. PT DENIES ANY PAIN OR DISCOMFORT. PARTICIPATED IN CECI THERAPIES. MEDS GIVEN PER ORDERS. CONTINENT OF B&B, BM THIS AFTERNOON, JOSS AND ALTHEA. RESTING IN BED CALL LIGHT WITHIN REACH, WILL CONTINUE TO MONITOR PER POC.
[2019-12-17 19:27] VITALS: BP 112/58
--- NOTE | 2019-12-18 00:50 | NUR ---
TOOK OVER PT CARE AT 1900. ASSESSMENT DONE AND VSS. MEDS GIVEN AND WELL TOLERATED. FALL PRECAUTIONS IN PLACE. CALLING FREQUENTLY FOR CARES, ETC. SLEEPING ON/OFF OVERNIGHT. HOURLY ROUNDING. CALL LIGHT IN REACH. WILL CONTINUE TO MONITOR.
[2019-12-18 08:00] VITALS: BP 100/51
--- NOTE | 2019-12-18 17:03 | NUR ---
ASSUMED CARE AT 0700, PT A&O X 4, CONFUSED AT TIMES. NO ACUTE DISTRESS DURING SHIFT. VSS, O2 ON RA. PT DENIES ANY PAIN OR DISCOMFORT DURING SHIFT. PARTICIPATED IN CECI THERAPIES. INCONTINENT OF B&B AT TIMES, BM X 1 TODAY. RESTING IN BED , CALL LIGHT WITHIN REACH, WILL CONTINUE TO MONITOR PER POC.
[2019-12-18 19:32] VITALS: BP 103/54
--- NOTE | 2019-12-19 02:57 | NUR ---
HYDROCORTISONE CREAM TO SMALL RED RASHY SPOTS. URINE INCONTINENCE USUALLY DUE TO INABILITY TO WAIT LONG ENOUGH TO USE BEDPAN. ALSO VOIDING FREQUENTLY AND IS UNHAPPY THAT SHE IS ON A DIURETIC. TURNS TO SIDE WITH MINIMAL ASSIST TO USE BEDPAN AND TO COOPERATE WHEN STAFF NEEDS TO CHANGE BED DUE TO MAJOR INCONTINENCE, PATIENT WANTS TO ASK DOCTOR TODAY IF SHE BE TESTED WITH URINALYSIS AGAIN.
[2019-12-19 06:51] LABS: ALBUMIN 1.9 g/dL (3.4-5.0); CALCIUM 8.2 mg/dL (8.5-10.1); CREATININE 0.6 mg/dL (0.6-1.0); POTASSIUM 3.8 mmol/L (3.5-5.1); TOTAL BILIRUBIN 3.5 mg/dL (<0.1-1.0); TOTAL PROTEIN 4.5 g/dL (6.4-8.2)
[2019-12-19 07:14] LABS: WBC 3.9 thou/uL (4.0-11.0)
[2019-12-19 07:15] LABS: HEMATOCRIT 30.6 % (37.0-47.0); HEMOGLOBIN 10.6 gm/dL (12.0-15.0); MCH 35.9 pg (26.0-34.0); MCHC 34.7 g/dL (28.0-37.0); MCV 103.3 fL (80.0-100.0); RBC 2.96 mil/uL (4.20-5.00)
[2019-12-19 08:00] VITALS: BP 102/62
[2019-12-19 09:13] VITALS: BP 102/62
--- NOTE | 2019-12-19 11:31 | NUR ---
ASSUMED CARE AT 0700. PATIENT IS ALERT AND ORIENTED X4. ABLE TO VOICE HER NEEDS. C/O UP TO BATHROOM COUPLE TIMES . PT REQUESTS TO HAVE UA CHECK. OBTAINED ORDER AND OBTAIN UA AND SEND TO LAB. WILL CONTINUE TO MONITOR. PATIENT HAS LEFT SIDED HEMIPARESIS. KISHOR IS ABLE TO SQUEEZE MY HAND WEAKLY ON THE LEFT. UP TO THE BSC WITH MIN ASSIST AND UP IN THE W/C FOR BREAKFAST. BRACE ON HER LEFT ARM AND LEFT LEG. PATIENT IS VOIDING NESTOR COLORED URINE. ENCOURAGE MORE FLUID INTAKE. FALL AND SAFETY PROTOCOLS IN PLACE. DENIES PAIN AT THIS TIME. PATIENT HAS RASH TO HER CHEST AND ARMS. PATIENT CONTINUES TO GET ABT EYE GTT TO HER RIGHT EYE R/T PINK EYE. IT CLEARS NOW. REFUSES EYE DROP AT NOON. RIGHT EYE IS IMPROVING. FALL AND SAFETY PROTOCOLS IN PLACE. UP WITH ST IN SPEECH OFFICE NOW. WILL CONTINUE TO MONITOR.
[2019-12-19 12:23] LABS: URINE BILIRUBIN NEGATIVE (Negative); URINE BLOOD TRACE (Negative); URINE CLARITY CLOUDY; URINE COLOR YELLOW; URINE GLUCOSE-RANDOM* NEGATIVE (Negative); URINE KETONES NEGATIVE (Negative); URINE LEUKOCYTES-REFLEX 3+ (Negative); URINE NITRITE-REFLEX POSITIVE (Negative); URINE PROTEIN (DIPSTICK) NEGATIVE (Negative); URINE UROBILINOGEN 0.2 E.U./dl (0.2-1.0)
[2019-12-19 12:53] LABS: SQUAMOUS 4-10 Moderate /LPF (0-3)
[2019-12-19 12:54] LABS: BACTERIA-REFLEX >30 Many /HPF (None Seen); CASTS None Seen /LPF (None Seen); CRYSTALS None Seen /LPF (None Seen); URINE RBC 3-10 Few /HPF (0-2); URINE WBC-REFLEX >25 Many /HPF (0-5)
--- NOTE | 2019-12-19 12:56 | NUR ---
Nutrition followup: PO intake continues to be highly variable but averaging 50% of meals past 4 days. However pt is drinking 100% of ensure enlive BID. Two different weights taken on 12/08, 143# and 154#. Pt had reported UBW 135# so lower weight suspected to be more accurate. GI stating liver cirrhosis without ascities. Continues on spironolactone and lactulose. Thiamine and vitamin. Reports possible diet upgrade soon per ST. Continue as low nutrition risk with interventions in place.
[2019-12-19 20:00] VITALS: BP 111/59
--- NOTE | 2019-12-20 01:51 | NUR ---
PT ALERT AND ORIENTED X 4. LEFT SIDE FLACCID. VOIDING ADEQUATE AMTS CLEAR YELLOW URINE PER BEDPAN. HAS URINARY FREQUENCY. PT DENIES PAIN OR DISCOMFORT. BED ALARM ON FOR SAFETY. PT APPEARS TO BE SLEEPING AT INTERVALS. AWAKE FREQUENTLY TO USE BEDPAN.
[2019-12-20 08:00] VITALS: BP 112/60
--- NOTE | 2019-12-20 11:50 | NUR ---
ASSUMED CARE AT 0700. PATIENT IS ALERT AND ORIENTED X4. PATIENT HAS LEFT SIDED HEMIPARESIS. PATIENT IS UP TO THE BSC WITH ASSIST OF 1 STAFF AND GAIT BELT. LUNGS ARE CLEAR AND DEMINISHED. ABD IS SOFT WITH BSX4. ABD IS SOFT WITH BSX4. UP TO THE BSC THIS A.M. TO VOID TEA COLORED URINE. COLOR IS JAUNDICED, EYES ARE YELLOW. FALL AND SAFETY PROTOCOLS IN PLACE. DENIES PAIN . CONTINUES TO PROGRESS SLOWLY TOWARDS D/C GOALS. RASH TO HER CHEST IS IMPROVING. WILL CONTINUE TO MONITER.
--- NOTE | 2019-12-20 14:11 | NUR ---
team meeting recommendation: re team with anticipate dc on with hh ( pt, ot, st, and nursing). 24hr surface supervisor with as needed assistance. dme: possible wheel chair or walker. no driving, spouse to assist with bills and pills.
[2019-12-20 19:15] VITALS: BP 107/59
--- NOTE | 2019-12-21 00:09 | NUR ---
TOOK OVER PT CARE AT 1900. ASSESSMENT DONE AND VSS. MEDS GIVEN AND VSS. FALL PRECAUTIONS IN PLACE. SLEEPIG WELL OVERNIGHT. HOURLY ROUNDING. CALL LIGHT IN REACH. WILL CONTINUE TO MONITOR.
[2019-12-21 07:50] VITALS: BP 98/49
--- NOTE | 2019-12-21 12:19 | PLAN ---
[facility] [place] [address] REHAB UNIT PLAN OF CARE Name: EILEEN GRAVES Room #: 516-1 ADM IN M.R.#: [id number] Admission: 12/09/19 Attend Phys: Amado Smith MD Discharge: Date of : 70 Report #: [id number] THIS REPORT FOR: //name// CC: Amado Proctor DATE OF SERVICE: 12/12/2019 PROGRESS NOTE/OVERALL PLAN OF CARE SUBJECTIVE: The patient is seen back today in followup. She is in no distress. She has had some loose stools after the Fleet enema when she had extra-large incontinent BM. Neuro exam today does show some improvement of her left upper extremity with a grade 3 to 3+, left wrist extension as well as left elbow extension now at least a grade 3- to 3. She was able to extend her left knee once a grade 2 with gravity removed and could wiggle or dorsiflex her toes slightly. She has been working in therapies with transfers, mod assist. Gait has been max assist 8 feet in the parallel bars. In occupational therapy, lower body dressing is dependent. As far as speech therapy, the patient has moderate cognitive deficits. ASSESSMENT: A 49-year-old white female with the following problem list: 1. 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 2. Left-sided hemiparesis with some improvement in this regard. 3. Toxic metabolic hepatic encephalopathy. 4. Fall with closed head injury. 5. Thrombocytopenia. 6. ETOH abuse history. 7. Hypertension. 8. Tobacco abuse history. 9. No documentation of any clinical seizures per review of Neurology notes. Recent EEG did not show any seizure activity, Neurology attempting to cut back on the seizure medications. PLAN: The overall plan of care is based on the preadmission screen, post-admission physician evaluation and information garnered from therapy assessments. 1. Estimated length of stay is at least two to two and half weeks. 2. Medical prognosis is reasonably good. 3. Anticipated interventions includes the interdisciplinary acute inpatient rehabilitation program. 4. Anticipated functional outcomes would be for the patient to become modified independent with transfers, mobility and ADLs as well as communication, cognition, so that she can hopefully return back to her prior living situation. We are hoping to get her to the point where her family can care for [place] again [place] [address] REHAB UNIT PLAN OF CARE Name: EILEEN GRAVES Room #: 516-1 [facility] IN [facility]#: [id number] Admission: 12/09/19 Attend Phys: Amado Smith MD Discharge: Date of : 70 Report #: [id number] 5. Discharge destination would again be to the home setting where she lives at home with her and family. 6. Expected therapy by discipline includes PT, OT, speech 1 hour per day each five days a week throughout the duration of the acute inpatient rehabilitation stay. <ELECTRONICALLY SIGNED> By: Amado Smith MD 12/21/19 1219 [id number] [id number] Amado Smith MD /[facility]
--- NOTE | 2019-12-21 18:53 | NUR ---
ASSUMED CARE AT 0700, PT A&O X 4, NO ACUTE DISTRESS DURING SHIFT. VSS, O2 ON RA. SEIZURE PRECAUTIONS CONTINUED. NO IV ACCESS, ON ABX FOR UTI. TOLERATED MEDS WHOLE WITH WATER. PARTICIPATED IN CECI THERAPIES. VENOUS US DONE TODAY, NEGATIVE FOR DVT. CONTINENT OF B&B, BM TODAY. RESTING IN BED, CALL LIGHT WITHIN REACH, WILL CONTINUE TO MONITOR PER POC.
[2019-12-21 19:50] VITALS: BP 103/60
--- NOTE | 2019-12-22 02:05 | NUR ---
PT ASSESSMENT COMPLETED AND VSS. MEDS GIVEN ORDERED AND WELL TOLERATED. FALL PRECAUTIONS IN PLACE. PT UP TO BSC WITH 2 ASST/GAIT. VOIDING LARGE AMOUNT OF YELLOW URINE. ASST WITH FREQUENT REPOSITION FOR COMFORT USING PILLOWS. SLEEPING ON AND OFF EVEN AFTER PAIN MEDICATION. WILL CONTINUE TO MONITOR FREQUENTLY.
[2019-12-22 05:37] LABS: HEMATOCRIT 30.6 % (37.0-47.0)
[2019-12-22 05:39] LABS: HEMOGLOBIN 10.7 gm/dL (12.0-15.0); MCH 36.1 pg (26.0-34.0); MCHC 34.9 g/dL (28.0-37.0); MCV 103.5 fL (80.0-100.0); PLATELET COUNT 42 thou/uL (150-400); RBC 2.95 mil/uL (4.20-5.00); RDW 19.7 % (10.5-14.5); WBC 3.5 thou/uL (4.0-11.0)
[2019-12-22 06:28] LABS: CALCIUM 8.3 mg/dL (8.5-10.1); CREATININE 0.6 mg/dL (0.6-1.0); MAGNESIUM 1.6 mg/dL (1.8-2.4); POTASSIUM 3.9 mmol/L (3.5-5.1); TOTAL BILIRUBIN 2.9 mg/dL (<0.1-1.0); TOTAL PROTEIN 4.7 g/dL (6.4-8.2)
[2019-12-22 07:34] LABS: ABSOLUTE NEUTROPHILS 1.6 thou/uL (1.4-8.2)
[2019-12-22 07:37] LABS: ANISOCYTOSIS 2+; MACROCYTES 1+
[2019-12-22 08:00] VITALS: BP 114/48
--- NOTE | 2019-12-22 20:01 | NUR ---
ASSUMED CARE AT 0700, PT A&O X 4, NO ACUTE DISTRESS DURING SHIFT. VSS 02 ON RA. PT DENIES ANY PAIN, PARTICIPATED IN CECI THERAPIES. CT SCAN OF HEAD DONE, NO ACUTE CHANGES. CONTINENT OF B&B, USES BSC, BM TODAY. RESTING IN BED, CALL LIGHT WITHIN REACH, WILL CONTINUE TO MONITOR PER POC.
[2019-12-22 21:00] VITALS: BP 105/54
--- NOTE | 2019-12-23 00:49 | NUR ---
TOOK OVER PT CARE AT 1900. ASSESSMENT DONE AND VSS. MEDS/CREAMS GIVEN AND WELL TOLERATED. FALL PRECAUTIONS IN PLACE. HOURLY ROUNDING. CALL LIGHT IN REACH. WILL CONTINUE TO MONITOR.
[2019-12-23 08:00] VITALS: BP 117/65
[2019-12-23 19:45] VITALS: BP 102/50
--- NOTE | 2019-12-23 19:45 | NUR ---
ASSUMED CARE AT 0700. REPORTS SLEPT FAIR. HAD ONE INCONT BLADDER THIS AM. ASSISTED PT UP TO WC AND PT ABLE TO BRUSH HER TEETH. VSS, O2 ON RA. SEIZURE PRECAUTIONS CONTINUED. CONTINUE TO BE ON ABX FOR UTI. TOLERATED MEDS WHOLE WITH WATER. PARTICIPATED IN SCHEDULE THERAPIES. CONTINENT OF B&B, HAD BM TODAY. OFFERED SUPPORTIVE CARE. PT CALLS OUT FOR MEDS SUGGESTED BY . DENIES PAIN, SOB. RESTING IN BED, CALL LIGHT WITHIN REACH, WILL CONTINUE TO MONITOR PER POC. GAVE REPORT TO NIGHT NURSE TO CONTINUE TO MONITOR.
--- NOTE | 2019-12-23 23:53 | NUR ---
PT ASSESSMENT COMPLETED AND VSS. MEDS GIVEN ORDERED AND WELL TOLERATED. FALL PRECAUTIONS IN PLACE. UP TO THE BSC WITH ASST/GAIT. VOIDING LARGE AMOUNT OF YELLOW URINE. ASST WITH REPOSITION. SLEEPING WELL. WILL CONTINUE TO MONITOR FREQUENTLY.
[2019-12-24 08:00] VITALS: BP 107/56
--- NOTE | 2019-12-24 10:26 | NUR ---
ASSUMED CARE AT 0700. PATIENT IS ALERT AND ORIENTED X4. PATIENT HAS LEFT SIDED HEMIPARESIS. LUNGS ARE CLEAR AND DEMINISHED. ABD IS SOFT WITH BSX4. PATIENT IS UP TO THE BSC WITH ASSIST OF 1 STAFF TO VOID NESTOR COLORED URINE. UP IN THE W/C FOR BREAKFAST. COLOR IS JAUNDICED. FALL AND SAFETY PROTOCOLS IN PLACE. DENIES PAIN AT THIS TIME. CONTINUES TO PROGRESS TOWARDS D/C GOALS. UP IN W/C. WILL CONTINUE TO MONITER.
[2019-12-24 20:21] VITALS: BP 100/53
--- NOTE | 2019-12-25 00:57 | NUR ---
TOOK OVER PT CARE AT 1900. ASSESSMENT DONE AND VSS. MEDS GIVEN AND WELL TOLERATED. FALL PRECAUTIONS IN PLACE. FREQUENT URINATION. HOURLY ROUNDING. CALL LIGHT IN REACH. WILL CONTINUE TO MONITOR.
[2019-12-25 07:46] VITALS: BP 116/64
--- NOTE | 2019-12-25 10:40 | NUR ---
ASSUMED CARE AT 0700. PATIENT IS ALERT AND ORIENTED X3. PATIENT HAS LEFT HEMIPARESIS. PATIENT UP WITH P.T. IN [place] WITH WALKER. LUNGS ARE CLEAR AND DEMINISHED. ABD IS SOFT WITH BSX4. UP TO THE BSC TO VOID NESTOR COLORED URINE. FALL AND SAFETY PROTOCOLS IN PLACE. DENIES ANY PAIN AT THIS TIME. CONTINUES TO PROGRESS TOWARDS D/C GOALS. WILL CONTINUE TO MONITER.
--- NOTE | 2019-12-25 10:44 | NUR ---
PATIENT HAS RASH TO HER CHEST AND RIGHT ARM. HYDROCORTIZONE OINTMENT APPLIED ORDERED. WILL CONTINUE TO MONITER.
[2019-12-25 19:25] VITALS: BP 103/54
--- NOTE | 2019-12-26 04:10 | NUR ---
PATIENT APPRECIATES HYDROCORTISONE CREAM TO RASHY RED BUMPS. VOIDING AND DRINKING GOOD AMOUNTS. TYLENOL AT MIDNIGHT FOR SINUS HEADACHE. ASKING FOR MEDS APPROPRIATELY AND ON TIME. APPRECIATES HER MULTIPLE 2100 MEDS IN PUDDING SHE IS STARTING TO GET TIRED OF APPLESAUCE. LEFT HAND STRENGTH RETURNING AND HAS SOME SEMBALANCE OF A COOLER WORKER. PLEASANTLY NOTES THAT THIS HAS BEEN A LONG HOSPITALIZATION FOR HER SO FAR.
[2019-12-26 08:00] VITALS: BP 113/73
--- NOTE | 2019-12-26 13:05 | NUR ---
ASSUMED CARES AT 0700. PT AWAKE, ALERT AND ORIENTED*4. DENIES PAIN. VITALS REMAIN STABLE. PT CONTINUES TO HAVE LEFT SIDED WEAKNESS, WORKED WITH THERAPY AND TOLERATED WELL. UP WITH 1 MIN ASSIST, PIVOT TRANSFERS. AMBULATED WITH PT. Q1H VISUAL CHECKS. CALL LIGHT WITHIN REACH. FALL PRECAUTIONS IN PLACE
--- NOTE | 2019-12-26 14:04 | NUR ---
Nutrition followup: pt eating better today, 90-110% of meals. Prior average of meals past few days, 41%. Drinking 100% of ensure enlive daily which provides 700 kcals and 40 gm protein from supplements alone. Weight down 4# from prior weight but continues to diurese. Follow trends. Meds include , lactulose, thiamine, spironolactone. Malnutrition doc per physician-agree and defer. possible diet upgrade soon per ST. Keep as low nutrition risk for now.
[2019-12-26 14:21] LABS: HEMATOCRIT 36.3 % (37.0-47.0); HEMOGLOBIN 12.8 gm/dL (12.0-15.0); MCH 36.3 pg (26.0-34.0); MCHC 35.1 g/dL (28.0-37.0); MCV 103.4 fL (80.0-100.0); RBC 3.52 mil/uL (4.20-5.00); RDW 20.2 % (10.5-14.5); WBC 4.4 thou/uL (4.0-11.0)
[2019-12-26 14:56] LABS: ALBUMIN 2.6 g/dL (3.4-5.0); CREATININE 0.6 mg/dL (0.6-1.0); POTASSIUM 4.1 mmol/L (3.5-5.1); TOTAL BILIRUBIN 3.1 mg/dL (<0.1-1.0); TOTAL PROTEIN 6.1 g/dL (6.4-8.2)
[2019-12-26 15:15] LABS: ABSOLUTE NEUTROPHILS 2.3 thou/uL (1.4-8.2); PLATELET COUNT 65 thou/uL (150-400)
[2019-12-26 20:04] VITALS: BP 105/57
--- NOTE | 2019-12-27 03:14 | NUR ---
DRINKING WATER TO KEEP URINE CLEAR AND IS VOIDING FREQUENTLY AND CONTINENTLY ON BEDPAN. HYDROCORTISONE TO RED RASHY BUMPS OF MINIMAL INDURATION, THEY DO NOT ITCH AND SEEM TO BE GETTING MINIMALLY BETTER
[2019-12-27 08:17] VITALS: BP 112/60
--- NOTE | 2019-12-27 10:41 | NUR ---
cm delivered vendor form, list choice and senior blue book for dc resources , bedside nurse to take to katie.
[2019-12-27 20:12] VITALS: BP 101/53
--- NOTE | 2019-12-27 23:25 | NUR ---
TOOK OVER PT CARE AT 1900. ASSESSMENT DONE AND VSS. MEDS GIVEN AND WELL TOLERATED. FALL PRECAUTIONS IN PLACE. HOURLY ROUNDING. CALL LIGHT IN REACH. WILL CONTINUE TO MONITOR.
[2019-12-28 08:00] VITALS: BP 111/73
--- NOTE | 2019-12-28 16:49 | NUR ---
PT NOTED IN CONVERSATION THIS AFTERNOON WITH THE NM THAT SHE IS NOT OK WITH STAYING UNTIL THE , AND THAT SHE AND HER MASOUD WOULD LIKE TO DC PREVIOUSLY PLANNED ON 01/02. THIS IS NOTED TO THE MD VIA MESSAGING.
--- NOTE | 2019-12-28 18:20 | NUR ---
ASSUMED CARE OF PT AT 0700. PT IS A&OX4 AND VITAL SIGNS ARE STABLE. SEIZURE PRECAUTIONS IN PLACE. DENIES PAIN AND PARTICIPATED IN SCHEDULED THERAPIES. PT CAN BE IMPULSIVE AT TIMES. RASH TO CHEST, CREAM APPLIED PER ORDERS. CALLS FOR MEDICAITONS APPROPRIATELY. PT WOULD LIKE TO DISCHARGE EARLIER THAT 01/05, CONCERNS ADDRESSED WITH NURSE VISITOR INFORMATION ASSISTANT. FALL PRECAUTIONS IN PLACE AND NURISNG WILL CONTINUE TO MONITOR.
[2019-12-28 19:30] VITALS: BP 115/64
--- NOTE | 2019-12-29 03:18 | NUR ---
ASSESSED AT START OF SHIFT. DENIES PAIN. UP WITH ASSISTX1 TO BSC. VSS. CALLED THIS PM FOR NIGHT MEDS AND ANSLEY IT WELL. HYDROCORTISONE CREAM APPLIED ON CHEST DUE TO RASH. SEIZURE PRECAUTIONS IN PLACE. FALL PREC IN PLACE AND CALL LIGHT IN REACH WILL CONT WITH POC TILL EOS.
[2019-12-29 08:00] VITALS: BP 122/68
--- NOTE | 2019-12-29 13:34 | NUR ---
cm notified by SUPERVISOR RECORD PRESS that dc date will be the 01/02 instead of 01/05. will cont following as needed for dc needs.
--- NOTE | 2019-12-29 14:50 | NUR ---
ASSUMED CARE AT 0700. PATIENT IS ALERT AND ORIENTED X4. PATIENT HAS LEFT HEMIPARESIS. 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 LUNGS ARE CLEAR ABD IS SOFT WITH BSX4. UP TO THE BSC TO VOID NESTOR COLORED URINE. UP IN W/C FOR MEALS. OUT TO DINING ROOM FOR LUNCH. FALL AND SAFETY PROTOCOLS IN PLACE. DENIES ANY PAIN. CONTINUES TO PROGRESS TOWARDS D/C GOALS. WILL CONTINUE TO MONITER.
[2019-12-29 20:20] VITALS: BP 104/59
--- NOTE | 2019-12-30 03:29 | NUR ---
UP IN WC EARLY IN SHIFT, ASKING FOR MEDS APPROPRIATLEY AT 2100, USED TOILET FOR VOID AND HAS USED BSC WITH MIN ASSIST ALMOST OFTEN HOURLY SINCE THEN. PLEASANT AND HOPING TO GO HOME EARLY NEXT WEEK. USING HYDROCORTISONE CREAM HERSELF TO RASH.
[2019-12-30 08:15] VITALS: BP 114/63
--- NOTE | 2019-12-30 18:27 | NUR ---
ASSUMED CARE OF PT AT 0700. PT A&OX4 AND VITAL SIGNS ARE STABLE. PT DENIES PAIN AND PARTICIPATED IN SCHEDULED THERAPIES. NO IV ACCESS. UP WITH SUPERVISION ASSISTANCE. CALLS APPROPRIATELY FOR MEDICAITONS. FALL PRECAUTIONS IN PLACE. NURSING WILL CONTINUE TO MONITOR.
[2019-12-30 19:23] VITALS: BP 119/75
--- NOTE | 2019-12-31 00:17 | NUR ---
TOOK OVER PT CARE AT 1900. ASSESSMENT DONE AND VSS. MEDS GIVEN AND WELL TOLERATED. FALL PRECAUTION IN PLACE. BED ALARM WENT OFF AT 0000. PT FOUND STANDING BY THE SINK AND HAD URINATED ALL OVER THE FLOOR. SHE SAID SHE HAD TO GO URGENTLY AND COULDN'T WAIT FOR ASSISTANCE. ASSISTED BACK TO BED. GOWN AND PANTIES CHANGED. HOURLY ROUNDING. CALL LIGHT IN REACH. WILL CONTINUE TO MONITOR.
[2019-12-31 07:39] VITALS: BP 105/68
--- NOTE | 2019-12-31 15:22 | NUR ---
ASSUMED CARE AT 0700, PT A&O X 4, NO ACUTE DISTRESS DURING SHIFT. VSS O2 ON RA. PT DENIES ANY PAIN OR DISCOMFORT DURING SHIFT. PARTICIPATED IN CECI THERAPIES. TOLERATES MEDS WHOLE WITH WATER. SEIZURE PRECAUTIONS CONTINUED. CONTINENT OF B&B USES BSC, LAST BM 12/30/19. RESTING IN BED, CALL LIGHT WITHIN REACH, WILL CONTINUE TO MONITOR PER POC.
[2019-12-31 19:05] VITALS: BP 107/60
--- NOTE | 2020-01-01 03:10 | NUR ---
assumed care at approx 1900 evening 12/30. pt sitting up in bed at change of shift, alert and oriented x4, appropriate and cooperative. pt took hs meds with water tolerating well. pt up to bathroom to void in toilet standby assist. pt appears to be sleeping soundly with hourly rounding checks. bed alarm on and call light in reach. will continue to monitor.
--- NOTE | 2020-01-01 11:09 | NUR ---
ASSUMED CARE AT 0700. PATIENT IS ALERT AND ORIENTEDX4. PATIENT HAS LEFT HEMIPARESIS. PATIENT HAS STRENGTH COMING BACK TO LEFT HAND. RASH TO CHEST CONTINUES TO IMPROVE. LUNGS ARE CLEAR. ABD IS SOFT WITH BSX4. UP TO THE BSC TO VOID NESTOR COLORED URINE. FALL AND SAFETY PROTOCOLS IN PLACE. DENIES PAIN WILL CONTINUE TO MONITER.
[2020-01-01 19:25] VITALS: BP 100/62
--- NOTE | 2020-01-02 03:05 | NUR ---
assumed care at approx 1900 12/31. pt alert and oriented x4 sitting up in bed at change of shift looking on computer. pt pleasant and cooperative. pt looking forward to being discharged this week. pt up to bathroom with 1 assist. pt appears to be sleeping soundly with hourly rounding checks. bed alarm on and call light in reach. will continue to monitor.
[2020-01-02 06:22] LABS: HEMATOCRIT 32.5 % (37.0-47.0); HEMOGLOBIN 11.4 gm/dL (12.0-15.0); MCH 36.5 pg (26.0-34.0); MCHC 35.2 g/dL (28.0-37.0); MCV 103.8 fL (80.0-100.0); PLATELET COUNT 68 thou/uL (150-400); RBC 3.13 mil/uL (4.20-5.00); RDW 19.1 % (10.5-14.5)
[2020-01-02 06:32] LABS: CALCIUM 8.2 mg/dL (8.5-10.1); CREATININE 0.6 mg/dL (0.6-1.0); MAGNESIUM 1.5 mg/dL (1.8-2.4); POTASSIUM 3.3 mmol/L (3.5-5.1)
[2020-01-02 08:00] VITALS: BP 118/67
[2020-01-02 09:51] LABS: ALBUMIN 2.3 g/dL (3.4-5.0); TOTAL BILIRUBIN 2.3 mg/dL (<0.1-1.0); TOTAL PROTEIN 5.1 g/dL (6.4-8.2)
[2020-01-02 10:27] LABS: ABSOLUTE NEUTROPHILS 1.8 thou/uL (1.4-8.2)
[2020-01-02 10:28] LABS: ANISOCYTOSIS 2+; MACROCYTES 1+
--- NOTE | 2020-01-02 11:47 | NUR ---
cm called and left message for spouse cancino, he not ever called back with who they want for hh. will cont following as needed for dc needs.
--- NOTE | 2020-01-02 12:45 | NUR ---
ASSUMED CARE AT 0700, PT A&O X 4, NO ACUTE DISTRESS DURING SHIFT. VSS, O2 ON RA. PT DENIES ANY PAIN OR DISCOMFORT. STAND BY ASSIST X 1 WITH GAIT BELT, PARTICIPATED IN CECI THERAPIES. TOLERATES MEDS WHOLE WITH WATER. CONTINENT OF B&B, BM TODAY, USES BR. POSS D/C TOMORROW. SITTING IN CHAIR, CALL LIGHT WITHIN REACH, WILL CONTINUE TO MONITOR PER POC.
[2020-01-02 14:56] VITALS: BP 118/67
[2020-01-02 19:19] VITALS: BP 96/49
--- NOTE | 2020-01-03 01:50 | NUR ---
UP TO TOILET WITH STANDBY ASSIST, CONTINENT. CALLED FOR 2100 MEDS. LOOKING FORWARD TO GOING HOME TODAY AND HAS PACKED 3 BAGS WITH MOST OF HER CLOTHES.
[2020-01-03 04:56] LABS: HEMATOCRIT 32.4 % (37.0-47.0); HEMOGLOBIN 11.2 gm/dL (12.0-15.0); MCH 36.3 pg (26.0-34.0); MCHC 34.6 g/dL (28.0-37.0); MCV 104.9 fL (80.0-100.0); PLATELET COUNT 65 thou/uL (150-400); RBC 3.09 mil/uL (4.20-5.00); RDW 19.4 % (10.5-14.5); WBC 4.1 thou/uL (4.0-11.0)
[2020-01-03 05:27] LABS: ALBUMIN 2.2 g/dL (3.4-5.0); CALCIUM 8.6 mg/dL (8.5-10.1); CREATININE 0.6 mg/dL (0.6-1.0); MAGNESIUM 1.7 mg/dL (1.8-2.4); POTASSIUM 3.9 mmol/L (3.5-5.1); TOTAL BILIRUBIN 2.4 mg/dL (<0.1-1.0)
[2020-01-03 07:30] VITALS: BP 110/51
[2020-01-03] MEDS ORDERED: HYDROCORTISONE30 G9 TOP (08:15)
[2020-01-03] MEDS ORDERED: KEPPRA 500 MG500 MG PO (08:15)
[2020-01-03] MEDS ORDERED: TRAZODONE HCL50 MG PO (08:15)
[2020-01-03] MEDS ORDERED: LACTULOSE20 GM/30 M PO ×2 (08:15→10:03)
[2020-01-03] MEDS ORDERED: MELATONIN5 M1 PO (08:15)
[2020-01-03 09:10] LABS: ABSOLUTE NEUTROPHILS 1.9 thou/uL (1.4-8.2)
[2020-01-03 09:11] LABS: ANISOCYTOSIS 2+
[2020-01-03 09:12] LABS: MACROCYTES 1+
--- NOTE | 2020-01-03 15:37 | NUR ---
PATIEWNT D/C TODAY, DISCHARGE EDUCATION AND INSTRUCTIONS DISCUSSED WITH PT AND SPOUSE. PT A&O X 4, NO ACUTE DISTRESS, DENIES PAIN. PT LEFT UNIT AT 1315 WITH NURSING STAFF TO MEDICAL MALL ENTRANCE AND LEFT FACILITY WITH SPOUSE.
--- NOTE | 2020-01-03 17:15 | NUR ---
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 MATEO CEMENT TILE MAKER NOTIFIED AND AWARE OF PT DECISION.
== END 2020-01-03 13:15 | disposition home or self-care (01) | DRG 85 ==
PROVIDERS: Internal Medicine; Nurse Practitioner; Nurse Practitioner Family; ADMIT Physical Medicine & Rehabilitation
DX: S06.340A Traumatic hemorrhage of right cerebrum without loss of consciousness, initial encounter (principal); G92 Toxic encephalopathy; G81.94 Hemiplegia, unspecified affecting left nondominant side; E46 Unspecified protein-calorie malnutrition; K86.2 Cyst of pancreas; D68.9 Coagulation defect, unspecified; N39.0 Urinary tract infection, site not specified; F17.210 Nicotine dependence, cigarettes, uncomplicated; K72.90 Hepatic failure, unspecified without coma; D69.6 Thrombocytopenia, unspecified; I10 Essential (primary) hypertension; F10.10 Alcohol abuse, uncomplicated; D64.9 Anemia, unspecified; F01.50 Vascular dementia, unspecified severity, without behavioral disturbance, psychotic disturbance, mood disturbance, and anxiety; F41.1 Generalized anxiety disorder; R41.0 Disorientation, unspecified; R21 Rash and other nonspecific skin eruption; R27.0 Ataxia, unspecified; E87.6 Hypokalemia; E83.42 Hypomagnesemia; K59.00 Constipation, unspecified; K70.30 Alcoholic cirrhosis of liver without ascites; R26.9 Unspecified abnormalities of gait and mobility; G47.00 Insomnia, unspecified; D63.8 Anemia in other chronic diseases classified elsewhere; R53.81 Other malaise; G40.409 Other generalized epilepsy and epileptic syndromes, not intractable, without status epilepticus; R39.15 Urgency of urination; B96.20 Unspecified Escherichia coli [E. coli] as the cause of diseases classified elsewhere; Z88.0 Allergy status to penicillin; Z86.73 Personal history of transient ischemic attack (TIA), and cerebral infarction without residual deficits; W18.39XA Other fall on same level, initial encounter; Y93.89 Activity, other specified; Y92.098 Other place in other non-institutional residence as the place of occurrence of the external cause; Y99.8 Other external cause status; Z68.27 Body mass index [BMI] 27.0-27.9, adult
CPT/HCPCS: 10112

== ENCOUNTER → 2020-01-11 | Outpatient (CLI) | payer OTHER ==
[~2020-01-11] MED LIST changes: +HYDROCORTISONE30 G9 TOP; +MELATONIN5 M1 PO; +TRAZODONE HCL50 MG PO
== END ==
LOC: CAT 08:12
DX: I61.8 Other nontraumatic intracerebral hemorrhage (principal); G93.89 Other specified disorders of brain